=== PATIENT | female | born 1955 | race Caucasian/White ===

== ENCOUNTER 2017-02-27 10:10 | Emergency (ER) | payer OTHER ==
[2017-02-27] MEDS ORDERED: Adenosine 6 MG/2 ML SDV ONE (10:20)
[2017-02-27] MEDS ORDERED: Adenosine 6 MG/2 ML SDV IVPUSH ONE (10:41)
[2017-02-27] MEDS ORDERED: Sodium Chloride 0.9% 10 ML Syringe FLUSH PRN (10:42)
[2017-02-27] MEDS ORDERED: Sodium Chloride 0.9% 1,000 ML IV SCH (10:45)
--- NOTE | 2017-02-27 10:47 | EDM.PDOC ---
ED HPI GENERAL MEDICAL PROBLEM - General Chief Complaint: Chest Pain Stated Complaint: HEART PRESSURE Time Seen by Provider: 02/27/17 10:40 Source of Information: Reports: Patient, Family, RN Notes Reviewed History Limitations: Reports: No Limitations - History of Present Illness INITIAL COMMENTS - FREE TEXT/NARRATIVE: 61-year-old female presents emergency department day complaint of palpitations, she states it started about one hour prior while she was driving down the road never experienced this before she has no heart history past medical history of hypertension and dyslipidemia, she does feel short of breath is diaphoretic no nausea vomiting Chest Pain Score (Numeric/FACES): 3 - Related Data Allergies Allergy/AdvReac Type Severity Reaction Status Date / Time Sulfa (Sulfonamide Allergy Hives Verified 02/27/17 10:29 Antibiotics) Home Meds: Home Meds Lisinopril [Prinivil] 1 tab PO DAILY 02/27/17 [History] Simvastatin [Zocor] 1 tab PO DAILY 02/27/17 [History] Past Medical History Cardiovascular History: Reports: Blood Clots/VTE/DVT, High Cholesterol, Hypertension - Past Surgical History Female Surgical History: Reports: Hysterectomy Social & Family History - Tobacco Use Smoking Status *Q: Never Smoker - Alcohol Use Days Per Week of Alcohol Use: 5 Number of Drinks Per Day: 2 Total Drinks Per Week: 10 - Recreational Drug Use Recreational Drug Use: No ED ROS GENERAL - Review of Systems Review Of Systems: See Below Constitutional: Reports: Diaphoresis HEENT: Reports: No Symptoms Respiratory: Reports: Shortness of Breath Cardiovascular: Reports: Chest Pain, Dyspnea on Exertion, Palpitations GI/Abdominal: Reports: No Symptoms : Reports: No Symptoms ED EXAM, GENERAL - Physical Exam Exam: See Below Exam Limited By: No Limitations General Appearance: Alert, Moderate Distress Respiratory/Chest: Lungs Clear, Normal Breath Sounds, No Accessory Muscle Use Cardiovascular: Tachycardia GI/Abdominal: Soft, Non-Tender Course - Vital Signs Last Recorded V/S: Last Vital Signs Temp 95.7 F 02/27/17 10:14 Pulse 82 02/27/17 12:50 Resp 20 02/27/17 11:41 BP 117/55 L 02/27/17 12:50 Pulse Ox 98 02/27/17 11:41 - Orders/Labs/Meds Orders: Active Orders 24 hr Category Date Time Status Cardiac Monitoring [RC] .As Directed Care 02/27/17 10:42 Active EKG Documentation Completion [RC] ASDIRECTED Care 02/27/17 10:43 Active EKG Documentation Completion [RC] ASDIRECTED Care 02/27/17 10:45 Active Peripheral IV Care [RC] . DIRECTED Care 02/27/17 10:42 Active Sodium Chloride 0.9% [Normal Saline] 1,000 ml Med 02/27/17 10:45 Active IV ASDIRECTED Sodium Chloride 0.9% [Saline Flush] Med 02/27/17 10:42 Active 10 ml FLUSH ASDIRECTED PRN Peripheral IV Insertion Adult [OM.PC] Stat Oth 02/27/17 10:42 Ordered EKG 12 Lead [EK] Stat Ther 02/27/17 10:43 Ordered EKG 12 Lead [EK] Stat Ther 02/27/17 10:44 Ordered Medication Orders Sodium Chloride (Normal Saline) 1,000 mls @ 999 mls/hr IV ASDIRECTED ALEC Last Admin: 02/27/17 10:25 Dose: 999 mls/hr Sodium Chloride (Saline Flush) 10 ml FLUSH ASDIRECTED PRN PRN Reason: Keep Vein Open Last Admin: 02/27/17 10:20 Dose: 10 ml Labs: Laboratory Tests 02/27/17 02/27/17 02/27/17 Range/Units 11:10 11:10 11:10 WBC 10.3 (4.5-11.0) K/uL RBC 4.55 (3.30-5.50) M/uL Hgb 14.8 (12.0-15.0) g/dL Hct 44.6 (36.0-48.0) % MCV 98 (80-98) fL MCH 33 H (27-31) pg MCHC 33 (32-36) % Plt Count 111 L (150-400) K/uL Neut % (Auto) 76 H (36-66) % Lymph % (Auto) 11 L (24-44) % [place] % (Auto) 7 H (2-6) % Eos % (Auto) 5 H (2-4) % Baso % (Auto) 0 (0-1) % Sodium 143 (140-148) mmol/L Potassium 4.7 (3.6-5.2) mmol/L Chloride 108 (100-108) mmol/L Carbon Dioxide 25 (21-32) mmol/L Anion Gap 9.7 (5.0-14.0) mmol/L BUN 17 (7-18) mg/dL Creatinine 1.2 H D (0.6-1.0) mg/dL Est Cr Clr Drug Dosing 44.30 mL/min Estimated GFR (MDRD) 46 L (>60) Glucose 122 H (74-106) mg/dL Calcium 8.9 (8.5-10.1) mg/dL Magnesium 1.8 (1.8-2.4) mg/dL Total Bilirubin 0.5 (0.2-1.0) mg/dL AST 45 H (15-37) U/L ALT 51 (12-78) U/L Alkaline Phosphatase 92 (46-116) U/L CK-MB (CK-2) 5.2 H* (0-3.6) mg/mL Troponin I 0.020 (0.000-0.056) ng/mL Total Protein 7.2 (6.4-8.2) g/dL Albumin 3.3 L (3.4-5.0) g/dL Globulin 3.9 H (2.3-3.5) g/dL Albumin/Globulin Ratio 0.9 L (1.2-2.2) TSH, Ultra Sensitive 1.472 (0.358-3.740) uIU/mL Urine Color Urine Appearance Urine pH (4.5-8.0) Ur Specific [place] (1.008-1.030) Urine Protein (NEGATIVE) mg/dL Urine Glucose (UA) (NEGATIVE) mg/dL Urine Ketones (NEGATIVE) mg/dL Urine Occult Blood (NEGATIVE) Urine Nitrite (NEGATIVE) Urine Bilirubin (NEGATIVE) Urine Urobilinogen (NORMAL) mg/dL Ur Leukocyte Esterase (NEGATIVE) Urine RBC (0-5) Urine WBC (0-5) Ur Epithelial Cells Amorphous Sediment Urine Bacteria Urine Mucus Urine Other Urine Opiates Screen (NEGATIVE) Ur Oxycodone Screen (NEGATIVE) Urine Methadone Screen (NEGATIVE) Ur Propoxyphene Screen (NEGATIVE) Ur Barbiturates Screen (NEGATIVE) Ur Tricyclics Screen (NEGATIVE) Ur Phencyclidine Scrn (NEGATIVE) Ur Amphetamine Screen (NEGATIVE) U Methamphetamines Scrn (NEGATIVE) Urine MDMA Screen (NEGATIVE) U Benzodiazepines Scrn (NEGATIVE) U Cocaine Metab Screen (NEGATIVE) U Marijuana (THC) Screen (NEGATIVE) 02/27/17 02/27/17 Range/Units 11:34 11:34 WBC (4.5-11.0) K/uL RBC (3.30-5.50) M/uL Hgb (12.0-15.0) g/dL Hct (36.0-48.0) % MCV (80-98) fL MCH (27-31) pg MCHC (32-36) % Plt Count (150-400) K/uL Neut % (Auto) (36-66) % Lymph % (Auto) (24-44) % [place] % (Auto) (2-6) % Eos % (Auto) (2-4) % Baso % (Auto) (0-1) % Sodium (140-148) mmol/L Potassium (3.6-5.2) mmol/L Chloride (100-108) mmol/L Carbon Dioxide (21-32) mmol/L Anion Gap (5.0-14.0) mmol/L BUN (7-18) mg/dL Creatinine (0.6-1.0) mg/dL Est Cr Clr Drug Dosing mL/min Estimated GFR (MDRD) (>60) Glucose (74-106) mg/dL Calcium (8.5-10.1) mg/dL Magnesium (1.8-2.4) mg/dL Total Bilirubin (0.2-1.0) mg/dL AST (15-37) U/L ALT (12-78) U/L Alkaline Phosphatase (46-116) U/L CK-MB (CK-2) (0-3.6) mg/mL Troponin I (0.000-0.056) ng/mL Total Protein (6.4-8.2) g/dL Albumin (3.4-5.0) g/dL Globulin (2.3-3.5) g/dL Albumin/Globulin Ratio (1.2-2.2) TSH, Ultra Sensitive (0.358-3.740) uIU/mL Urine Color Yellow Urine Appearance Cloudy Urine pH 6.5 (4.5-8.0) Ur Specific [place] 1.010 (1.008-1.030) Urine Protein Negative (NEGATIVE) mg/dL Urine Glucose (UA) Normal (NEGATIVE) mg/dL Urine Ketones 15 H (NEGATIVE) mg/dL Urine Occult Blood Moderate (NEGATIVE) Urine Nitrite Negative (NEGATIVE) Urine Bilirubin Negative (NEGATIVE) Urine Urobilinogen Normal (NORMAL) mg/dL Ur Leukocyte Esterase Negative (NEGATIVE) Urine RBC 5-10 H (0-5) Urine WBC 5-10 H (0-5) Ur Epithelial Cells Many Amorphous Sediment Many Urine Bacteria Few Urine Mucus Few Urine Other See note Urine Opiates Screen Negative (NEGATIVE) Ur Oxycodone Screen Negative (NEGATIVE) Urine Methadone Screen Negative (NEGATIVE) Ur Propoxyphene Screen Negative (NEGATIVE) Ur Barbiturates Screen Negative (NEGATIVE) Ur Tricyclics Screen Negative (NEGATIVE) Ur Phencyclidine Scrn Negative (NEGATIVE) Ur Amphetamine Screen Negative (NEGATIVE) U Methamphetamines Scrn Negative (NEGATIVE) Urine MDMA Screen Negative (NEGATIVE) U Benzodiazepines Scrn Negative (NEGATIVE) U Cocaine Metab Screen Negative (NEGATIVE) U Marijuana (THC) Screen Negative (NEGATIVE) Meds: Medications Generic Name Dose Route Start Last Admin Trade Name Freq PRN Reason Stop Dose Admin Sodium Chloride 1,000 mls @ 999 mls/hr 02/27/17 10:45 02/27/17 10:25 Normal Saline IV 999 mls/hr ASDIRECTED ALEC Administration Sodium Chloride 10 ml 02/27/17 10:42 02/27/17 10:20 Saline Flush FLUSH 10 ml ASDIRECTED PRN Administration Keep Vein Open Discontinued Medications Generic Name Dose Route Start Last Admin Trade Name Freq PRN Reason Stop Dose Admin Adenosine Confirm 02/27/17 10:20 02/27/17 10:46 Adenocard Administered 02/27/17 10:21 Not Given Dose 18 mg .ROUTE .STK-MED ONE Adenosine 6 mg 02/27/17 10:41 02/27/17 10:28 Adenocard IVPUSH 02/27/17 10:42 6 mg NOW ONE Administration Metoprolol Tartrate 25 mg 02/27/17 12:42 02/27/17 12:50 Lopressor PO 02/27/17 12:43 25 mg ONETIME ONE Administration Departure - Departure Time of Disposition: 15:12 Disposition: Home, Self-Care 01 Condition: Good Clinical Impression: SVT (supraventricular tachycardia) Instructions: Paroxysmal Supraventricular Tachycardia, [id number] Referrals: PCP,None [Primary Care Provider] - Forms: ED Department Discharge Additional Instructions: [place] start Metoprolol Tartrate 25mg. 1 tablet twice a day orally. Return to ER if symptoms return or worsen. - My Orders Last 24 Hours: My Active Orders 02/27/17 10:42 Cardiac Monitoring [RC] .As Directed Peripheral IV Care [RC] . DIRECTED Sodium Chloride 0.9% [Saline Flush] 10 ml FLUSH ASDIRECTED PRN Peripheral IV Insertion Adult [OM.PC] Stat 02/27/17 10:43 EKG Documentation Completion [RC] ASDIRECTED EKG 12 Lead [EK] Stat 02/27/17 10:44 EKG 12 Lead [EK] Stat 02/27/17 10:45 EKG Documentation Completion [RC] ASDIRECTED Sodium Chloride 0.9% [Normal Saline] 1,000 ml IV ASDIRECTED - Assessment/Plan Last 24 Hours: My Active Orders 02/27/17 10:42 Cardiac Monitoring [RC] .As Directed Peripheral IV Care [RC] . DIRECTED Sodium Chloride 0.9% [Saline Flush] 10 ml FLUSH ASDIRECTED PRN Peripheral IV Insertion Adult [OM.PC] Stat 02/27/17 10:43 EKG Documentation Completion [RC] ASDIRECTED EKG 12 Lead [EK] Stat 02/27/17 10:44 EKG 12 Lead [EK] Stat 02/27/17 10:45 EKG Documentation Completion [RC] ASDIRECTED Sodium Chloride 0.9% [Normal Saline] 1,000 ml IV ASDIRECTED Plan: Assessment Acuity = acute Site and laterality = supraventricular tachycardia Etiology = unclear etiology Manifestations = chest pressure now resolved] Location of injury = Home Lab values = cranial elevated 1.2 consistent with chronic renal failure stage G IIIB CK-MB elevated to 5.2 probably related to SVT albumin low at 3.3 consistent hypoalbuminemia urinalysis reveals 5-10 rbc's consistent hematuria and 5-10 wbc's consists of pyuria initial EKG demonstrates supraventricular tachycardia, after treatment and conversion repeat EKG demonstrates a sinus tachycardia at 109, chest x-ray shows no acute process Plan Called discussed case with her primary care Dr. Johnson he agreed to come and evaluate her in the emergency department for further treatment Patient was in agreement with the plan all questions were answered, they were instructed to return to the emergency department or call for worsening symptoms. This note was dictated using [employer] voice recognition software please call with any questions.
--- NOTE | 2017-02-27 11:35 | CR ---
Chest 1V Frontal FINDINGS: The heart and vascular structures are normal in appearance. No infiltrates or effusions are demonstrated. The skeletal structures are unremarkable. IMPRESSION: Negative exam.
[2017-02-27] MEDS ORDERED: Metoprolol Tartrate 25 MG Tab PO ONE (12:42)
[2017-02-27 15:16] VITALS: BP 97/53
--- NOTE | 2017-02-28 16:43 | PCM.HP ---
H&P History of Present Illness - General Date of Service: 02/27/17 Source of Information: Patient, EMS Notes Reviewed, Family History Limitations: Reports: No Limitations - History of Present Illness Initial Comments - Free Text/Narative: She was driving to work and suddenly had shortness of breath and felt a rapid heart rate. She was very weak and felt like fainting. She had been on her way to work and turned around and came to the ER. I will called for a possible admission. She has had a history of a DVT in the past and was on coumadin for a number o months and was taken off after 9 months of treatment. She had has infrequent episodes of palpations in the past. When she came to the ER her heart rate was over 200 BPM and feeling very weak. She was treated and the heart rate came down to close to 100 BPM. At the time of my evaluation she was sitting in bed without complaints. Onset of Symptoms: Reports: Today Duration of Symptoms: Reports: Hour(s): Location: Reports: Chest Quality: Reports: Sharp Associated Symptoms: Reports: Diaphoresis, Shortness of Breath, Weakness Chest Pain Score (Numeric/FACES): 3 - Related Data Allergies/Adverse Reactions: Allergies Allergy/AdvReac Type Severity Reaction Status Date / Time Sulfa (Sulfonamide Allergy Hives Verified 02/27/17 10:29 Antibiotics) Home Medications: Home Meds Lisinopril [Prinivil] 1 tab PO DAILY 02/27/17 [History] Simvastatin [Zocor] 1 tab PO DAILY 02/27/17 [History] Past Medical History Cardiovascular History: Reports: Blood Clots/VTE/DVT, High Cholesterol, Hypertension - Past Surgical History Female Surgical History: Reports: Hysterectomy Social & Family History - Tobacco Use Smoking Status *Q: Never Smoker - Alcohol Use Days Per Week of Alcohol Use: 5 Number of Drinks Per Day: 2 Total Drinks Per Week: 10 - Recreational Drug Use Recreational Drug Use: No H&P Review of Systems - Review of Systems: Review Of Systems: See Below General: Reports: Weakness HEENT: Reports: Headaches Pulmonary: Reports: Shortness of Breath Cardiovascular: Reports: Palpitations, Dyspnea on Exertion Gastrointestinal: Reports: No Symptoms Genitourinary: Reports: No Symptoms Musculoskeletal: Reports: No Symptoms Skin: Reports: No Symptoms Psychiatric: Reports: Anxiety Neurological: Reports: Weakness Exam - Exam Exam: See Below - Vital Signs Vital Signs: Last Vital Signs Temp 95.7 F 02/27/17 10:14 Pulse 82 02/27/17 14:50 Resp 16 02/27/17 14:50 BP 97/53 L 02/27/17 14:50 Pulse Ox 98 02/27/17 12:41 Weight: 179 lb - Exam General: Alert, Mild Distress HEENT: PERRLA, Hearing Intact, Mucosa Moist & [place], Nares Patent, Normal Nasal Septum, Posterior Pharynx Clear, Conjunctiva Clear, EOMI, EACs Clear, TMs Clear Neck: Supple, Trachea Midline, 2 Lungs: Clear to Auscultation, Normal Respiratory Effort Cardiovascular: Regular Rate GI/Abdominal Exam: Normal Bowel Sounds, Soft, Non-Tender, No Organomegaly, No Distention, No Abnormal Bruit, No Mass, Pelvis Stable Extremities: Normal Inspection, Normal Range of Motion, Non-Tender, No Pedal Edema, Normal Capillary Refill - Patient Data Result Diagrams: 02/27/17 11:10 02/27/17 11:10 *Q Meaningful Use (ADM) - VTE *Q VTE Criteria *Q: - Stroke *Q Stroke Criteria *Q: - AMI *Q AMI Criteria *Q: Problem List Initiated/Reviewed/Updated: Yes Orders Last 24hrs: Assessment/plan: #1. Supraventricular tachycardia. I discussed the condition and felt she could go home as the blood work and EKG did not show any acute changes. I gavae her Metoprolol and observed her for over one hour and she appeared to be stable having no cardiac rhythm problems. I discharged her home with the understanding she should return if she develops a rapid heart rate or does not feel good. She understands. Myles yosvany continue with Metoprolol tartrate 25mg twice daily.
== END 2017-02-27 15:10 | disposition home or self-care (01) ==
LOC: JP.ED 10:10
DX: I47.1 Supraventricular tachycardia (principal); I10 Essential (primary) hypertension; E78.00 Pure hypercholesterolemia, unspecified; Z79.899 Other long term (current) drug therapy; Z88.2 Allergy status to sulfonamides; Z90.710 Acquired absence of both cervix and uterus
CPT/HCPCS: 36415; 71010; 80053; 80305; 81001; 82553; 83735; 84443; 84484; 85025; 93005; 96361; 96374; 99285; A9270; J0153; J7040; J7050

== ENCOUNTER 2017-07-28 13:31 | Inpatient (IN) | payer OTHER ==
[2017-07-28] MEDS ORDERED: Adenosine 6 MG/2 ML SDV ONE (13:38)
[2017-07-28] MEDS ORDERED: Adenosine 6 MG/2 ML SDV IVPUSH ONE ×3 (13:47→15:15)
[2017-07-28] MEDS ORDERED: Sodium Chloride 0.9% 1,000 ML IV SCH ×3 (14:00→17:30)
[2017-07-28] MEDS ORDERED: Ondansetron 4 MG/2 ML SDV IVPUSH ONE (14:01)
--- NOTE | 2017-07-28 14:37 | CR ---
Heart size within normal limits. Pulmonary vasculature within normal limits. No focal consolidation.
[2017-07-28] MEDS ORDERED: Ketorolac 30 MG/ML SDV IVPUSH ONE (15:03)
--- NOTE | 2017-07-28 15:04 | EDM.PDOC ---
ED HPI GENERAL MEDICAL PROBLEM - General Chief Complaint: Cardiovascular Problem Stated Complaint: RAPID HEARTBEAT Time Seen by Provider: 07/28/17 13:50 Source of Information: Reports: Patient, Family History Limitations: Reports: No Limitations - History of Present Illness INITIAL COMMENTS - FREE TEXT/NARRATIVE: pt arrived with a rapid heart rate over 200. She had no chest pain. She had been up all nite with nausea , vomiting and diarrhea. She had no marked sob but did have a high resp rate. Onset: Today, Sudden, Other (Pt had been up all nite vomiting and having diarrhea. ) Duration: Hour(s): Location: Reports: Chest, Abdomen Associated Symptoms: Reports: Fever/Chills, Nausea/Vomiting - Related Data Allergies Allergy/AdvReac Type Severity Reaction Status Date / Time Sulfa (Sulfonamide Allergy Hives Verified 07/28/17 14:01 Antibiotics) Home Meds: Home Meds Diltiazem HCl [Cartia Xt] 1 tab PO DAILY 07/28/17 [History] Ondansetron 1 tab PO ASDIRECTED 07/28/17 [History] Oseltamivir Phosphate 1 tab PO ASDIRECTED 07/28/17 [History] Past Medical History Cardiovascular History: Reports: Blood Clots/VTE/DVT, High Cholesterol, Hypertension, Other (See Below) Other Cardiovascular History: SVT - Past Surgical History Female Surgical History: Reports: Hysterectomy Social & Family History - Tobacco Use Smoking Status *Q: Never Smoker - Alcohol Use Days Per Week of Alcohol Use: 3 Number of Drinks Per Day: 1 Total Drinks Per Week: 3 - Recreational Drug Use Recreational Drug Use: No ED ROS GENERAL - Review of Systems Review Of Systems: See Below Constitutional: Reports: Chills HEENT: Reports: No Symptoms Respiratory: Reports: No Symptoms Cardiovascular: Reports: Lightheadedness, Palpitations, Other ( heart rate of 216) Endocrine: Reports: No Symptoms GI/Abdominal: Reports: No Symptoms, Diarrhea, Nausea, Vomiting : Reports: No Symptoms Musculoskeletal: Reports: No Symptoms Skin: Reports: No Symptoms Neurological: Reports: Dizziness, Headache Psychiatric: Reports: Anxiety ED EXAM, GENERAL - Physical Exam Exam: See Below Free Text/Narrative:: Pt arrived feeling dizzy. Her heart rate ws 216 in a svt. She was mildly sob. She had been up all nite vomiting and having diarrhea. Exam Limited By: No Limitations General Appearance: Alert, Anxious, Mild Distress, Other (pupils are equal and reactive. ) Ears: Normal TMs Ear Exam: Bilateral Ear: Auricle Normal, Canal Normal, TM normal Nose: Normal Inspection Throat/Mouth: Normal Inspection Head: Atraumatic Neck: Normal Inspection Respiratory/Chest: No Respiratory Distress Cardiovascular: Regular Rate, Rhythm, Tachycardia, Other (heart rate at 216) GI/Abdominal: Soft, Non-Tender (Female) Exam: Deferred Rectal (Female) Exam: Deferred Extremities: Normal Inspection Neurological: Alert, Oriented, Normal Cognition Psychiatric: Anxious Course - Vital Signs Last Recorded V/S: Last Vital Signs Temp 36.7 C 07/28/17 13:58 Pulse 103 H 07/28/17 15:24 Resp 32 H 07/28/17 14:11 BP 141/78 H 07/28/17 15:24 Pulse Ox 100 07/28/17 14:11 - Orders/Labs/Meds Orders: Active Orders 24 hr Category Date Time Status DD [D-DIMER QUANTITATIVE] [COAG] Stat Lab 07/28/17 15:31 Ordered INFLUENZA A+B AG SCREEN [RM] Stat Lab 07/28/17 15:28 Uncollected LORazepam [Ativan] Med 07/28/17 15:34 Once 0.5 mg IVPUSH ONETIME ONE Magnesium Sulfate/Water [Magnesium Sulfate 2 GM in Med 07/28/17 15:29 Ordered Water 50 ML] 2 gm Premix Bag 1 bag IV ONETIME Sodium Chloride 0.9% [Normal Saline] 1,000 ml Med 07/28/17 14:00 Active IV ASDIRECTED Sodium Chloride 0.9% [Normal Saline] 1,000 ml Med 07/28/17 15:00 Active IV ASDIRECTED Medication Orders Sodium Chloride (Normal Saline) 1,000 mls @ 999 mls/hr IV ASDIRECTED ALEC Last Admin: 07/28/17 13:45 Dose: 999 mls/hr Sodium Chloride (Normal Saline) 1,000 mls @ 999 mls/hr IV ASDIRECTED ALEC Last Admin: 07/28/17 14:49 Dose: 999 mls/hr Magnesium Sulfate 2 gm/ Premix 50 mls @ 12.5 mls/hr IV ONETIME ONE Stop: 07/28/17 19:28 Labs: Laboratory Tests 07/28/17 07/28/17 07/28/17 Range/Units 13:46 13:46 13:46 WBC 17.5 H (4.5-11.0) K/uL RBC 5.12 (3.30-5.50) M/uL Hgb 16.3 H (12.0-15.0) g/dL Hct 49.5 H (36.0-48.0) % MCV 97 (80-98) fL MCH 32 H (27-31) pg MCHC 33 (32-36) % Plt Count 308 (150-400) K/uL Neut % (Auto) 94 H (36-66) % Lymph % (Auto) 4 L (24-44) % [place] % (Auto) 2 (2-6) % Eos % (Auto) 0 L (2-4) % Baso % (Auto) 0 (0-1) % Sodium 143 (140-148) mmol/L Potassium 3.6 (3.6-5.2) mmol/L Chloride 108 (100-108) mmol/L Carbon Dioxide 19 L (21-32) mmol/L Anion Gap 19.6 H (5.0-14.0) mmol/L BUN 19 H (7-18) mg/dL Creatinine 1.2 H (0.6-1.0) mg/dL Est Cr Clr Drug Dosing 44.30 mL/min Estimated GFR (MDRD) 46 L (>60) Glucose 176 H (74-106) mg/dL Calcium 9.1 (8.5-10.1) mg/dL Magnesium 1.7 L (1.8-2.4) mg/dL Total Bilirubin 0.5 (0.2-1.0) mg/dL AST 23 (15-37) U/L ALT 33 (12-78) U/L Alkaline Phosphatase 102 (46-116) U/L Troponin I < 0.017 (0.000-0.056) ng/mL NT-Pro-B Natriuret Pep (5-125) pg/mL Total Protein 7.3 (6.4-8.2) g/dL Albumin 3.7 (3.4-5.0) g/dL Globulin 3.6 H (2.3-3.5) g/dL Albumin/Globulin Ratio 1.0 L (1.2-2.2) TSH, Ultra Sensitive (0.358-3.740) uIU/mL Urine Color Urine Appearance Urine pH (4.5-8.0) Ur Specific [place] (1.008-1.030) Urine Protein (NEGATIVE) mg/dL Urine Glucose (UA) (NEGATIVE) mg/dL Urine Ketones (NEGATIVE) mg/dL Urine Occult Blood (NEGATIVE) Urine Nitrite (NEGATIVE) Urine Bilirubin (NEGATIVE) Urine Urobilinogen (NORMAL) mg/dL Ur Leukocyte Esterase (NEGATIVE) Urine RBC (0-5) Urine WBC (0-5) Ur Epithelial Cells Amorphous Sediment Urine Bacteria Urine Mucus 07/28/17 07/28/17 07/28/17 Range/Units 13:46 14:49 15:16 WBC (4.5-11.0) K/uL RBC (3.30-5.50) M/uL Hgb (12.0-15.0) g/dL Hct (36.0-48.0) % MCV (80-98) fL MCH (27-31) pg MCHC (32-36) % Plt Count (150-400) K/uL Neut % (Auto) (36-66) % Lymph % (Auto) (24-44) % [place] % (Auto) (2-6) % Eos % (Auto) (2-4) % Baso % (Auto) (0-1) % Sodium (140-148) mmol/L Potassium (3.6-5.2) mmol/L Chloride (100-108) mmol/L Carbon Dioxide (21-32) mmol/L Anion Gap (5.0-14.0) mmol/L BUN (7-18) mg/dL Creatinine (0.6-1.0) mg/dL Est Cr Clr Drug Dosing mL/min Estimated GFR (MDRD) (>60) Glucose (74-106) mg/dL Calcium (8.5-10.1) mg/dL Magnesium (1.8-2.4) mg/dL Total Bilirubin (0.2-1.0) mg/dL AST (15-37) U/L ALT (12-78) U/L Alkaline Phosphatase (46-116) U/L Troponin I (0.000-0.056) ng/mL NT-Pro-B Natriuret Pep 118 (5-125) pg/mL Total Protein (6.4-8.2) g/dL Albumin (3.4-5.0) g/dL Globulin (2.3-3.5) g/dL Albumin/Globulin Ratio (1.2-2.2) TSH, Ultra Sensitive 1.203 (0.358-3.740) uIU/mL Urine Color Yellow Urine Appearance Clear Urine pH 7.0 (4.5-8.0) Ur Specific [place] 1.010 (1.008-1.030) Urine Protein Negative (NEGATIVE) mg/dL Urine Glucose (UA) Normal (NEGATIVE) mg/dL Urine Ketones 15 H (NEGATIVE) mg/dL Urine Occult Blood Negative (NEGATIVE) Urine Nitrite Negative (NEGATIVE) Urine Bilirubin Small (NEGATIVE) Urine Urobilinogen Normal (NORMAL) mg/dL Ur Leukocyte Esterase Negative (NEGATIVE) Urine RBC 0-5 (0-5) Urine WBC 0-5 (0-5) Ur Epithelial Cells Moderate Amorphous Sediment Few Urine Bacteria Few Urine Mucus Few Meds: Medications Generic Name Dose Route Start Last Admin Trade Name Freq PRN Reason Stop Dose Admin Sodium Chloride 1,000 mls @ 999 mls/hr 07/28/17 14:00 07/28/17 13:45 Normal Saline IV 999 mls/hr ASDIRECTED ALEC Administration Sodium Chloride 1,000 mls @ 999 mls/hr 07/28/17 15:00 07/28/17 14:49 Normal Saline IV 999 mls/hr ASDIRECTED ALEC Administration Magnesium Sulfate 2 gm/ Premix 50 mls @ 12.5 mls/hr 07/28/17 15:29 IV 07/28/17 19:28 ONETIME ONE Discontinued Medications Generic Name Dose Route Start Last Admin Trade Name Freq PRN Reason Stop Dose Admin Adenosine Confirm 07/28/17 13:38 07/28/17 14:11 Adenocard Administered 07/28/17 13:39 Not Given Dose 18 mg .ROUTE .STK-MED ONE Adenosine 6 mg 07/28/17 13:47 07/28/17 13:47 Adenocard IVPUSH 07/28/17 13:48 6 mg NOW ONE Administration Adenosine 12 mg 07/28/17 13:49 07/28/17 13:49 Adenocard IVPUSH 07/28/17 13:50 12 mg NOW ONE Administration Adenosine 12 mg 07/28/17 15:15 07/28/17 15:10 Adenocard IVPUSH 07/28/17 15:16 12 mg ONETIME ONE Administration Ketorolac Tromethamine 30 mg 07/28/17 15:03 07/28/17 15:24 Toradol IVPUSH 07/28/17 15:04 30 mg ONETIME ONE Administration Metoprolol Tartrate 50 mg 07/28/17 15:15 07/28/17 15:24 Lopressor PO 07/28/17 15:16 50 mg ONETIME ONE Administration Ondansetron HCl 4 mg 07/28/17 14:01 Zofran IVPUSH 07/28/17 14:02 ONETIME ONE - Re-Assessments/Exams Free Text/Narrative Re-Assessment/Exam: 07/28/17 15:54 pt arrived with a heart rate of 216. She converted and she was given 2 liters of fluid. She seemed stable and she got up omn a comode and she once again went into the svt. She was converted with another 12 mg of adenogard. She was given lopressor 50mg po. She then had a bm and she went back into the svt. She was given another 12 mg of adenosine and she converted once again. A cardiozem drip was hung to try to hold her rhythm better. Departure - Departure Time of Disposition: 16:06 Disposition: Admitted As Inpatient 66 Condition: Fair Clinical Impression: SVT (supraventricular tachycardia), Dehydration, Hypomagnesemia, Flu syndrome Referrals: Matteo Johnson Sr, MD [Primary Care Provider] - Forms: ED Department Discharge Care Plan Goals: admit to Dr Johnson. - My Orders Last 24 Hours: My Active Orders 07/28/17 14:00 Sodium Chloride 0.9% [Normal Saline] 1,000 ml IV ASDIRECTED 07/28/17 15:00 Sodium Chloride 0.9% [Normal Saline] 1,000 ml IV ASDIRECTED 07/28/17 15:28 INFLUENZA A+B AG SCREEN [RM] Stat 07/28/17 15:29 Magnesium Sulfate/Water [Magnesium Sulfate 2 GM in Water 50 ML] 2 gm Premix Bag 1 bag IV ONETIME 07/28/17 15:31 DD [D-DIMER QUANTITATIVE] [COAG] Stat 07/28/17 15:34 LORazepam [Ativan] 0.5 mg IVPUSH ONETIME ONE - Assessment/Plan Last 24 Hours: My Active Orders 07/28/17 14:00 Sodium Chloride 0.9% [Normal Saline] 1,000 ml IV ASDIRECTED 07/28/17 15:00 Sodium Chloride 0.9% [Normal Saline] 1,000 ml IV ASDIRECTED 07/28/17 15:28 INFLUENZA A+B AG SCREEN [RM] Stat 07/28/17 15:29 Magnesium Sulfate/Water [Magnesium Sulfate 2 GM in Water 50 ML] 2 gm Premix Bag 1 bag IV ONETIME 07/28/17 15:31 DD [D-DIMER QUANTITATIVE] [COAG] Stat 07/28/17 15:34 LORazepam [Ativan] 0.5 mg IVPUSH ONETIME ONE
[2017-07-28] MEDS ORDERED: Metoprolol Tartrate 50 MG Tab PO ONE (15:15)
[2017-07-28] MEDS ORDERED: Magnesium Sulfate/Water 2 GM in Premix Bag 1 BAG IV ONE (15:29)
[2017-07-28] MEDS ORDERED: LORazepam 2 MG/ML MDV IVPUSH ONE (15:34)
[2017-07-28] MEDS ORDERED: Diltiazem 25 MG/5 ML SDV IVPUSH ONE (15:59)
[2017-07-28] MEDS ORDERED: Diltiazem 100 MG in Sodium Chloride 0.9% 100 ML IV SCH (16:00)
[2017-07-28] MEDS ORDERED: Adenosine 6 MG/2 ML SDV IV ONE (16:00)
[2017-07-28] MEDS: Diltiazem 100 MG in Sodium Chloride 0.9% 100 ML IV SCH ×2 (16:29→16:31)
--- NOTE | 2017-07-28 17:54 | PCM.HP ---
H&P History of Present Illness - General Date of Service: 07/28/17 Source of Information: Patient, EMS Notes Reviewed - History of Present Illness Initial Comments - Free Text/Narative: She started to have Muscle aching and N and V yesterday. She has a history of SVT episodes in the past and taking Diltiazem for rate and bp control. She said recently her heart has been rapid and she can feel it race. She feels like the Medicine is not controlling her rate like it was in the past. She has had no angina type pains in her chest. She had been on Zocor but was stopped because of muscle pains. Today her heart started to race and came into the ER and heart was over 200 beats/min. She was given adenosine 5 times to convert her heart. Duration of Symptoms: Reports: Hour(s): Severity: Severe - Related Data Allergies/Adverse Reactions: Allergies Allergy/AdvReac Type Severity Reaction Status Date / Time Sulfa (Sulfonamide Allergy Hives Verified 07/28/17 14:01 Antibiotics) Home Medications: Home Meds Diltiazem HCl [Cartia Xt] 1 tab PO DAILY 07/28/17 [History] Ondansetron 1 tab PO ASDIRECTED 07/28/17 [History] Oseltamivir Phosphate 1 tab PO ASDIRECTED 07/28/17 [History] Past Medical History Cardiovascular History: Reports: Blood Clots/VTE/DVT, High Cholesterol, Hypertension, Other (See Below) Other Cardiovascular History: SVT - Past Surgical History Female Surgical History: Reports: Hysterectomy Social & Family History - Tobacco Use Smoking Status *Q: Never Smoker - Alcohol Use Days Per Week of Alcohol Use: 3 Number of Drinks Per Day: 1 Total Drinks Per Week: 3 - Recreational Drug Use Recreational Drug Use: No H&P Review of Systems - Review of Systems: Review Of Systems: See Below General: Reports: Fever, Chills, Weakness HEENT: Reports: No Symptoms Pulmonary: Reports: No Symptoms Cardiovascular: Reports: Palpitations, Dyspnea on Exertion Gastrointestinal: Reports: Nausea, Vomiting Genitourinary: Reports: No Symptoms Musculoskeletal: Reports: No Symptoms Skin: Reports: No Symptoms Psychiatric: Reports: No Symptoms Neurological: Reports: No Symptoms Exam - Exam Exam: See Below - Vital Signs Vital Signs: Last Vital Signs Temp 98.1 F 07/28/17 13:58 Pulse 146 H 07/28/17 16:34 Resp 32 H 07/28/17 14:11 BP 118/76 07/28/17 16:34 Pulse Ox 97 07/28/17 16:34 Weight: 200 lb 8 oz - Exam General: Alert, Oriented, 4 HEENT: PERRLA, Hearing Intact, Mucosa Moist & [place], Nares Patent, Normal Nasal Septum, Posterior Pharynx Clear, Conjunctiva Clear, EOMI, EACs Clear, TMs Clear Neck: Supple, Trachea Midline, 2 Lungs: Clear to Auscultation, Normal Respiratory Effort Cardiovascular: Regular Rate, Regular Rhythm GI/Abdominal Exam: Normal Bowel Sounds, Soft, Non-Tender, No Organomegaly, No Distention, No Abnormal Bruit, No Mass, Pelvis Stable Back Exam: Normal Inspection, Full Range of Motion, NT Extremities: Normal Inspection, Normal Range of Motion, Non-Tender, No Pedal Edema, Normal Capillary Refill Peripheral Pulses: 1+: Radial (L), Radial (R) Skin: Warm, Dry, Intact Neurological: Cranial Nerves Intact, Reflexes Equal Bilateral Neuro Extensive - Mental Status: Alert, Oriented x3, Normal Mood/Affect, Normal Cognition DTR: 1+: Bicep (L), Bicep (R) - Patient Data Result Diagrams: 07/28/17 13:46 07/28/17 13:46 Nate Results Last 24 hrs: Microbiology 07/28/17 15:57 Influenza Type A Antigen Screen - Final Nasopharyngeal Swab - Nare, Unspecified NEGATIVE INFLUENZA A VIRUS AG Influenza Type B Antigen Screen - Final NEGATIVE INFLUENZA B VIRUS AG *Q Meaningful Use (ADM) - VTE *Q VTE Criteria *Q: - Stroke *Q Stroke Criteria *Q: - AMI *Q AMI Criteria *Q: Problem List Initiated/Reviewed/Updated: Yes Orders Last 24hrs: Active Orders 24 hr Category Date Time Status Diltiazem [Cardizem] 100 mg Med 07/28/17 16:15 Active Sodium Chloride 0.9% [Normal Saline] 100 ml IV TITRATE Flecainide [Tambocor] Med 07/28/17 21:00 Ordered 50 mg PO BID Sodium Chloride 0.9% [Normal Saline] 1,000 ml Med 07/28/17 17:30 Active IV ASDIRECTED Medication Orders Flecainide Acetate (Tambocor) 50 mg PO BID ALEC Magnesium Sulfate 2 gm/ Premix 50 mls @ 12.5 mls/hr IV ONETIME ONE Stop: 07/28/17 19:28 Last Admin: 07/28/17 15:39 Dose: 12.5 mls/hr Diltiazem HCl 100 mg/ Sodium (Chloride) 100 mls @ 5 mls/hr IV TITRATE ALEC; 5 MG /HR PRN Reason: Protocol Last Admin: 07/28/17 16:31 Dose: 5 mg/hr, 5 mls/hr Sodium Chloride (Normal Saline) 1,000 mls @ 400 mls/hr IV ASDIRECTED ALEC Assessment/Plan Comment:: Assessment/Plan: #1. SVT: Will continue with diltiazem at 240mg/24 hrs her BP has been 120 systolic. Will start Tambocor (flecainide) 50mg bid and increase if needed to hold her in a normal rate.. #2. HTN: Has been stable of the meds at home. #3. Leucocytosis: WBC 17,000 90% neuts. Urine is shows a few bacteria. This may be do to stress with dehydration. I see no evidence of a septic condition presently. #4. HLD: Will check Lipid in the morning and begin Crestor rather than simvastatin. #5. S/P DVT: Not active presently.
[2017-07-28] MEDS ORDERED: Flecainide 50 MG Tab PO SCH ×2 (18:30→21:00)
[2017-07-28] MEDS ORDERED: Ondansetron 4 MG Tab.DIS PO SCH (19:30)
[2017-07-28] MEDS: Acetaminophen 325 MG Tab PO PRN (21:30)
[2017-07-28] MEDS: Sodium Chloride 0.9% 1,000 ML IV SCH (23:52)
[2017-07-29] MEDS: Sodium Chloride 0.9% 1,000 ML IV SCH ×2 (04:36→09:49)
[2017-07-29] MEDS: Acetaminophen 325 MG Tab PO PRN ×3 (05:37→23:48)
[2017-07-29] MEDS: Potassium Chloride 10 MEQ Cap.ER PO SCH ×2 (10:06→16:34)
--- NOTE | 2017-07-29 17:47 | PCM.PN ---
- General Info Date of Service: 07/29/17 Admission Dx/Problem (Free Text): She has had an good day and BP has improved. She is concerned about swelling of her left leg but she has had this since her DVT several years ago. She did know that she peaked a fever this afternoon andhas been able to eat without difficulty. - Review of Systems General: Reports: Weakness HEENT: Reports: No Symptoms Pulmonary: Reports: No Symptoms Cardiovascular: Reports: No Symptoms Gastrointestinal: Reports: No Symptoms Genitourinary: Reports: No Symptoms Musculoskeletal: Reports: No Symptoms Skin: Reports: No Symptoms Neurological: Reports: No Symptoms Psychiatric: Reports: No Symptoms - Patient Data Vitals - Most Recent: Last Vital Signs Temp 100.5 F 07/29/17 16:39 Pulse 75 07/29/17 16:39 Resp 17 07/29/17 16:39 BP 133/61 07/29/17 16:39 Pulse Ox 98 07/29/17 16:39 Weight - Most Recent: 205 lb 15.999 oz I&O - Last 24 Hours: Intake & Output 07/29/17 07/29/17 07/29/17 06:59 14:59 22:59 Intake Total 2498 400 Output Total 200 700 250 Balance 2298 -300 -250 Lab Results Last 24 Hours: Laboratory Results - last 24 hr 07/29/17 07/29/17 Range/Units 04:35 04:40 WBC 7.4 (4.5-11.0) K/uL RBC 3.91 (3.30-5.50) M/uL Hgb 12.7 D (12.0-15.0) g/dL Hct 38.2 (36.0-48.0) % MCV 98 (80-98) fL MCH 33 H (27-31) pg MCHC 33 (32-36) % Plt Count 91 L (150-400) K/uL Neut % (Auto) 72 H (36-66) % Lymph % (Auto) 16 L (24-44) % [place] % (Auto) 11 H (2-6) % Eos % (Auto) 1 L (2-4) % Baso % (Auto) 0 (0-1) % Sodium 143 (140-148) mmol/L Potassium 3.5 L (3.6-5.2) mmol/L Chloride 113 H (100-108) mmol/L Carbon Dioxide 19 L (21-32) mmol/L Anion Gap 14.5 H (5.0-14.0) mmol/L BUN 11 (7-18) mg/dL Creatinine 0.8 (0.6-1.0) mg/dL Est Cr Clr Drug Dosing 66.45 mL/min Estimated GFR (MDRD) > 60 (>60) Glucose 92 (74-106) mg/dL Calcium 7.8 L (8.5-10.1) mg/dL Nate Results Last 24 Hours: Microbiology 07/28/17 15:57 Influenza Type A Antigen Screen - Final Nasopharyngeal Swab - Nare, Unspecified NEGATIVE INFLUENZA A VIRUS AG Influenza Type B Antigen Screen - Final NEGATIVE INFLUENZA B VIRUS AG Med Orders - Current: Current Medications Acetaminophen (Tylenol) 650 mg PO Q4H PRN PRN Reason: Pain Last Admin: 07/29/17 16:33 Dose: 650 mg Sodium Chloride (Normal Saline) 1,000 mls @ 100 mls/hr IV ASDIRECTED [facility] Last Admin: 07/29/17 09:49 Dose: 200 mls/hr Ondansetron HCl (Zofran Odt) 4 mg PO ASDIRECTED ALEC Potassium Chloride (Potassium Chloride) 10 meq PO BIDMEALS [facility] Last Admin: 07/29/17 16:34 Dose: 10 meq Discontinued Medications Adenosine (Adenocard) Confirm Administered Dose 18 mg .ROUTE .STK-MED ONE Stop: 07/28/17 13:39 Last Admin: 07/28/17 14:11 Dose: Not Given Adenosine (Adenocard) 6 mg IVPUSH NOW ONE Stop: 07/28/17 13:48 Last Admin: 07/28/17 13:47 Dose: 6 mg Adenosine (Adenocard) 12 mg IVPUSH NOW ONE Stop: 07/28/17 13:50 Last Admin: 07/28/17 13:49 Dose: 12 mg Adenosine (Adenocard) 12 mg IVPUSH ONETIME ONE Stop: 07/28/17 15:16 Last Admin: 07/28/17 15:10 Dose: 12 mg Adenosine (Adenocard) 12 mg IV ONETIME ONE Stop: 07/28/17 16:01 Last Admin: 07/28/17 15:50 Dose: 12 mg Diltiazem HCl (Diltiazem) 5 mg IVPUSH ONETIME ONE Stop: 07/28/17 16:00 Last Admin: 07/28/17 17:24 Dose: Not Given Flecainide Acetate (Tambocor) 50 mg PO BID [facility] Last Admin: 07/28/17 19:00 Dose: 50 mg Sodium Chloride (Normal Saline) 1,000 mls @ 999 mls/hr IV ASDIRECTED ALEC Last Admin: 07/28/17 13:45 Dose: 999 mls/hr Sodium Chloride (Normal Saline) 1,000 mls @ 999 mls/hr IV ASDIRECTED ALEC Last Admin: 07/28/17 14:49 Dose: 999 mls/hr Magnesium Sulfate 2 gm/ Premix 50 mls @ 12.5 mls/hr IV ONETIME ONE Stop: 07/28/17 19:28 Last Admin: 07/28/17 15:39 Dose: 12.5 mls/hr Diltiazem HCl 100 mg/ Sodium (Chloride) 100 mls @ 5 mls/hr IV TITRATE ALEC; 5 MG /HR PRN Reason: Protocol Last Titration: 07/29/17 04:36 Dose: 0 mg/hr, 0 mls/hr Sodium Chloride (Normal Saline) 1,000 mls @ 400 mls/hr IV ASDIRECTED [facility] Ketorolac Tromethamine (Toradol) 30 mg IVPUSH ONETIME ONE Stop: 07/28/17 15:04 Last Admin: 07/28/17 15:24 Dose: 30 mg Lorazepam (Ativan) 0.5 mg IVPUSH ONETIME ONE Stop: 07/28/17 15:35 Last Admin: 07/28/17 17:25 Dose: Not Given Metoprolol Tartrate (Lopressor) 50 mg PO ONETIME ONE Stop: 07/28/17 15:16 Last Admin: 07/28/17 15:24 Dose: 50 mg Ondansetron HCl (Zofran) 4 mg IVPUSH ONETIME ONE Stop: 07/28/17 14:02 Last Admin: 07/28/17 16:33 Dose: Not Given - Exam General: Alert, Oriented HEENT: Pupils Equal, Pupils Reactive, EOMI, Mucous Membr. Moist/[place] Neck: Supple Lungs: Clear to Auscultation, Normal Respiratory Effort Cardiovascular: Regular Rate, Regular Rhythm GI/Abdominal Exam: Normal Bowel Sounds Back Exam: Normal Inspection Extremities: Normal Inspection, Normal Range of Motion, Other (slight enlargement of the left leg but stable.) Peripheral Pulses: 1+: Radial (L), Radial (R) Skin: Warm, Dry, Intact Psy/Mental Status: Alert, Normal Affect, Normal Mood - Problem List Review Problem List Initiated/Reviewed/Updated: Yes - My Orders Last 24 Hours: My Active Orders 07/28/17 19:15 Sodium Chloride 0.9% [Normal Saline] 1,000 ml IV ASDIRECTED 07/28/17 19:16 Patient Status [ADT] Routine Oxygen Therapy [RC] PRN VTE/DVT Education [RC] Per Unit Routine Vital Signs [RC] Q4H Resuscitation Status Routine 07/28/17 19:30 Ondansetron [Zofran ODT] 4 mg PO ASDIRECTED 07/28/17 21:20 Acetaminophen [Tylenol] 650 mg PO Q4H PRN 07/29/17 09:30 Potassium Chloride 10 meq PO BIDMEALS 07/29/17 Breakfast Regular Diet [DIET] - Plan Plan:: Assessment/Plan: #1. SVT: Will continue with diltiazem at 240mg/24 hrs her BP has been 120 systolic. She was unable to tolerate Tambocor due to QT prolongation. Will restart Diltiazem and discharge home. #2. HTN: Has been stable. #3. Leucocytosis: WBC Normal today. Urine is shows a few bacteria. Dehydration resolved. I see no evidence of a septic condition presently. #4. HLD: Will begin Crestor rather than simvastatin. #5. S/P DVT: Not active presently.
--- NOTE | 2017-07-29 17:56 | PCM.DCSUM1 ---
Discharge Summary - Hospital Course Brief History: Admitted with severe dehydration and tachycardia requiring Adenocine 5 times to hold her rate. Was admitted to the ICU and stablized. - Discharge Data Discharge Date: 07/30/17 Discharge Disposition: Home, Self-Care 01 Condition: Fair - Patient Summary/Data Hospital Course: She came in with a heart rate of 240 and given adenosine and converted to NSR. She was unable to tolerate Flecainide but did well after hydration I also started Lanoxin and increased the cardiazem to 240 bid. She said the day of discharge she had diarrhea will do stool cultures etc as an out patient. She will not return to work until next week. - Patient Instructions Diet: Heart Healthy Diet - Discharge Plan Home Medications: Home Meds Diltiazem HCl [Cartia Xt] 1 tab PO DAILY 07/28/17 [History] Ondansetron 1 tab PO ASDIRECTED 07/28/17 [History] Oseltamivir Phosphate 1 tab PO ASDIRECTED 07/28/17 [History] Forms: ED Department Discharge Referrals: Matteo Johnson Sr, MD [Primary Care Provider] - - Discharge Summary/Plan Comment Discharge Summary/Plan Comment: Assessment/Plan: #1. SVT: Will continue with diltiazem at 240mg bid hrs her BP has been 130 systolic. She was unable to tolerate Tambocor due to QT prolongation. Will discharge home. #2. HTN: Has been stable. #3. Leucocytosis: resolved. #4. HLD: Will begin Crestor rather than simvastatin. #5. S/P DVT: Not active presently. Will see in the office in one week or sooner if needed - Review of Systems General: Reports: No Symptoms - Patient Data Vitals - Most Recent: Last Vital Signs Temp 100.5 F 07/29/17 16:39 Pulse 75 07/29/17 16:39 Resp 17 07/29/17 16:39 BP 133/61 07/29/17 16:39 Pulse Ox 98 07/29/17 16:39 Weight - Most Recent: 205 lb 15.999 oz I&O - Last 24 hours: Intake & Output 07/29/17 07/29/17 07/29/17 06:59 14:59 22:59 Intake Total 2498 400 Output Total 200 700 250 Balance 2298 -300 -250 Lab Results - Last 24 hrs: Laboratory Results - last 24 hr 07/29/17 07/29/17 Range/Units 04:35 04:40 WBC 7.4 (4.5-11.0) K/uL RBC 3.91 (3.30-5.50) M/uL Hgb 12.7 D (12.0-15.0) g/dL Hct 38.2 (36.0-48.0) % MCV 98 (80-98) fL MCH 33 H (27-31) pg MCHC 33 (32-36) % Plt Count 91 L (150-400) K/uL Neut % (Auto) 72 H (36-66) % Lymph % (Auto) 16 L (24-44) % [place] % (Auto) 11 H (2-6) % Eos % (Auto) 1 L (2-4) % Baso % (Auto) 0 (0-1) % Sodium 143 (140-148) mmol/L Potassium 3.5 L (3.6-5.2) mmol/L Chloride 113 H (100-108) mmol/L Carbon Dioxide 19 L (21-32) mmol/L Anion Gap 14.5 H (5.0-14.0) mmol/L BUN 11 (7-18) mg/dL Creatinine 0.8 (0.6-1.0) mg/dL Est Cr Clr Drug Dosing 66.45 mL/min Estimated GFR (MDRD) > 60 (>60) Glucose 92 (74-106) mg/dL Calcium 7.8 L (8.5-10.1) mg/dL [facility]I Results - Last 24 hrs: Microbiology 07/28/17 15:57 Influenza Type A Antigen Screen - Final Nasopharyngeal Swab - Nare, Unspecified NEGATIVE INFLUENZA A VIRUS AG Influenza Type B Antigen Screen - Final NEGATIVE INFLUENZA B VIRUS AG Med Orders - Current: Current Medications Acetaminophen (Tylenol) 650 mg PO Q4H PRN PRN Reason: Pain Last Admin: 07/29/17 16:33 Dose: 650 mg Sodium Chloride (Normal Saline) 1,000 mls @ 100 mls/hr IV ASDIRECTED [facility] Last Admin: 07/29/17 09:49 Dose: 200 mls/hr Ondansetron HCl (Zofran Odt) 4 mg PO ASDIRECTED [facility] Potassium Chloride (Potassium Chloride) 10 meq PO BIDMEALS [facility] Last Admin: 07/29/17 16:34 Dose: 10 meq Discontinued Medications Adenosine (Adenocard) Confirm Administered Dose 18 mg .ROUTE .STK-MED ONE Stop: 07/28/17 13:39 Last Admin: 07/28/17 14:11 Dose: Not Given Adenosine (Adenocard) 6 mg IVPUSH NOW ONE Stop: 07/28/17 13:48 Last Admin: 07/28/17 13:47 Dose: 6 mg Adenosine (Adenocard) 12 mg IVPUSH NOW ONE Stop: 07/28/17 13:50 Last Admin: 07/28/17 13:49 Dose: 12 mg Adenosine (Adenocard) 12 mg IVPUSH ONETIME ONE Stop: 07/28/17 15:16 Last Admin: 07/28/17 15:10 Dose: 12 mg Adenosine (Adenocard) 12 mg IV ONETIME ONE Stop: 07/28/17 16:01 Last Admin: 07/28/17 15:50 Dose: 12 mg Diltiazem HCl (Diltiazem) 5 mg IVPUSH ONETIME ONE Stop: 07/28/17 16:00 Last Admin: 07/28/17 17:24 Dose: Not Given Flecainide Acetate (Tambocor) 50 mg PO BID [facility] Last Admin: 07/28/17 19:00 Dose: 50 mg Sodium Chloride (Normal Saline) 1,000 mls @ 999 mls/hr IV ASDIRECTED [facility] Last Admin: 07/28/17 13:45 Dose: 999 mls/hr Sodium Chloride (Normal Saline) 1,000 mls @ 999 mls/hr IV ASDIRECTED [facility] Last Admin: 07/28/17 14:49 Dose: 999 mls/hr Magnesium Sulfate 2 gm/ Premix 50 mls @ 12.5 mls/hr IV ONETIME ONE Stop: 07/28/17 19:28 Last Admin: 07/28/17 15:39 Dose: 12.5 mls/hr Diltiazem HCl 100 mg/ Sodium (Chloride) 100 mls @ 5 mls/hr IV TITRATE [facility]; 5 MG /HR PRN Reason: Protocol Last Titration: 07/29/17 04:36 Dose: 0 mg/hr, 0 mls/hr Sodium Chloride (Normal Saline) 1,000 mls @ 400 mls/hr IV ASDIRECTED [facility] Ketorolac Tromethamine (Toradol) 30 mg IVPUSH ONETIME ONE Stop: 07/28/17 15:04 Last Admin: 07/28/17 15:24 Dose: 30 mg Lorazepam (Ativan) 0.5 mg IVPUSH ONETIME ONE Stop: 07/28/17 15:35 Last Admin: 07/28/17 17:25 Dose: Not Given Metoprolol Tartrate (Lopressor) 50 mg PO ONETIME ONE Stop: 07/28/17 15:16 Last Admin: 07/28/17 15:24 Dose: 50 mg Ondansetron HCl (Zofran) 4 mg IVPUSH ONETIME ONE Stop: 07/28/17 14:02 Last Admin: 07/28/17 16:33 Dose: Not Given - Exam General: Reports: Alert, Oriented HEENT: Reports: Pupils Equal, Pupils Reactive, EOMI, Mucous Membr. Moist/[place] Neck: Reports: Supple Lungs: Reports: Clear to Auscultation, Normal Respiratory Effort Cardiovascular: Reports: Regular Rate, Regular Rhythm GI/Abdominal Exam: Normal Bowel Sounds, Soft, Non-Tender, No Organomegaly, No Distention, No Abnormal Bruit, No Mass, Pelvis Stable Extremities: Other (minimum swelling left ankle.) Neurological: Reports: No New Focal Deficit Psy/Mental Status: Reports: Alert, Normal Affect, Normal Mood *Q Meaningful Use (DIS) - VTE *Q VTE Criteria *Q: - Stroke *Q Stroke Criteria *Q: - AMI *Q AMI Criteria *Q:
[2017-07-29] MEDS: Diltiazem 120 MG Cap.CD PO SCH (18:21)
[2017-07-29] MEDS ORDERED: Digoxin 50 MCG/ML Soln 60 ML Bottle PO STA ×2 (18:36→18:45)
[2017-07-29] MEDS ORDERED: Digoxin 125 MCG Tab PO ONE ×2 (19:00→22:00)
[2017-07-29] MEDS ORDERED: Digoxin 125 MCG Tab ONE (19:37)
[2017-07-29] MEDS ORDERED: Rosuvastatin 10 MG Tab PO SCH (21:00)
[2017-07-29] MEDS ORDERED: Digoxin 50 MCG/ML Soln 60 ML Bottle PO ONE (22:00)
--- NOTE | 2017-07-30 07:49 | PCM.PN ---
- General Info Date of Service: 07/30/17 Subjective Update: She has no complaints and feeling good. - Review of Systems General: Reports: Weakness HEENT: Reports: No Symptoms Pulmonary: Reports: No Symptoms Cardiovascular: Reports: No Symptoms Gastrointestinal: Reports: No Symptoms Genitourinary: Reports: No Symptoms Musculoskeletal: Reports: No Symptoms Skin: Reports: No Symptoms Neurological: Reports: No Symptoms Psychiatric: Reports: No Symptoms - Patient Data Vitals - Most Recent: Last Vital Signs Temp 99.5 F 07/30/17 04:00 Pulse 70 07/30/17 04:00 Resp 20 07/30/17 04:00 BP 122/65 07/30/17 04:00 Pulse Ox 94 L 07/30/17 04:00 Weight - Most Recent: 207 lb 3.2 oz I&O - Last 24 Hours: Intake & Output 07/29/17 07/30/17 07/30/17 22:59 06:59 14:59 Intake Total 1981 480 Output Total 650 3200 Balance 1331 -2720 Med Orders - Current: Current Medications Acetaminophen (Tylenol) 650 mg PO Q4H PRN PRN Reason: Pain Last Admin: 07/29/17 23:48 Dose: 650 mg Digoxin (Lanoxin) 125 mcg PO DAILY@1300 [facility] Diltiazem HCl (Cardizem Cd) 240 mg PO DAILY [facility] Last Admin: 07/29/17 18:21 Dose: 240 mg Ondansetron HCl (Zofran Odt) 4 mg PO ASDIRECTED [facility] Potassium Chloride (Potassium Chloride) 10 meq PO BIDMEALS [facility] Last Admin: 07/29/17 16:34 Dose: 10 meq Rosuvastatin Calcium (Crestor) 10 mg PO BEDTIME [facility] Last Admin: 07/29/17 21:13 Dose: 10 mg Discontinued Medications Adenosine (Adenocard) Confirm Administered Dose 18 mg .ROUTE .STK-MED ONE Stop: 07/28/17 13:39 Last Admin: 07/28/17 14:11 Dose: Not Given Adenosine (Adenocard) 6 mg IVPUSH NOW ONE Stop: 07/28/17 13:48 Last Admin: 07/28/17 13:47 Dose: 6 mg Adenosine (Adenocard) 12 mg IVPUSH NOW ONE Stop: 07/28/17 13:50 Last Admin: 07/28/17 13:49 Dose: 12 mg Adenosine (Adenocard) 12 mg IVPUSH ONETIME ONE Stop: 07/28/17 15:16 Last Admin: 07/28/17 15:10 Dose: 12 mg Adenosine (Adenocard) 12 mg IV ONETIME ONE Stop: 07/28/17 16:01 Last Admin: 07/28/17 15:50 Dose: 12 mg Digoxin (Lanoxin) 0 mcg PO ONETIME ONE Stop: 07/29/17 22:01 Digoxin (Lanoxin) 0 mcg PO DAILY@1300 [facility] Digoxin (Lanoxin) 0.25 mcg PO NOW STA Stop: 07/29/17 18:37 Last Admin: 07/29/17 19:12 Dose: Not Given Digoxin (Lanoxin) 250 mcg PO ONETIME ONE Stop: 07/29/17 19:01 Last Admin: 07/29/17 19:45 Dose: 250 mcg Digoxin (Lanoxin) 250 mcg PO ONETIME ONE Stop: 07/29/17 22:01 Last Admin: 07/29/17 23:02 Dose: 250 mcg Digoxin (Lanoxin) Confirm Administered Dose 500 mcg .ROUTE .STK-MED ONE Stop: 07/29/17 19:38 Last Admin: 07/29/17 19:47 Dose: Not Given Diltiazem HCl (Diltiazem) 5 mg IVPUSH ONETIME ONE Stop: 07/28/17 16:00 Last Admin: 07/28/17 17:24 Dose: Not Given Flecainide Acetate (Tambocor) 50 mg PO BID [facility] Last Admin: 07/28/17 19:00 Dose: 50 mg Sodium Chloride (Normal Saline) 1,000 mls @ 999 mls/hr IV ASDIRECTED [facility] Last Admin: 07/28/17 13:45 Dose: 999 mls/hr Sodium Chloride (Normal Saline) 1,000 mls @ 999 mls/hr IV ASDIRECTED [facility] Last Admin: 07/28/17 14:49 Dose: 999 mls/hr Magnesium Sulfate 2 gm/ Premix 50 mls @ 12.5 mls/hr IV ONETIME ONE Stop: 07/28/17 19:28 Last Admin: 07/28/17 15:39 Dose: 12.5 mls/hr Diltiazem HCl 100 mg/ Sodium (Chloride) 100 mls @ 5 mls/hr IV TITRATE [facility]; 5 MG /HR PRN Reason: Protocol Last Titration: 07/29/17 04:36 Dose: 0 mg/hr, 0 mls/hr Sodium Chloride (Normal Saline) 1,000 mls @ 400 mls/hr IV ASDIRECTED [facility] Sodium Chloride (Normal Saline) 1,000 mls @ 100 mls/hr IV ASDIRECTED [facility] Last Admin: 07/29/17 09:49 Dose: 200 mls/hr Ketorolac Tromethamine (Toradol) 30 mg IVPUSH ONETIME ONE Stop: 07/28/17 15:04 Last Admin: 07/28/17 15:24 Dose: 30 mg Lorazepam (Ativan) 0.5 mg IVPUSH ONETIME ONE Stop: 07/28/17 15:35 Last Admin: 07/28/17 17:25 Dose: Not Given Metoprolol Tartrate (Lopressor) 50 mg PO ONETIME ONE Stop: 07/28/17 15:16 Last Admin: 07/28/17 15:24 Dose: 50 mg Ondansetron HCl (Zofran) 4 mg IVPUSH ONETIME ONE Stop: 07/28/17 14:02 Last Admin: 07/28/17 16:33 Dose: Not Given - Exam General: Alert, Oriented HEENT: Pupils Equal, Pupils Reactive, EOMI, Mucous Membr. Moist/[place] Neck: Supple Lungs: Clear to Auscultation, Normal Respiratory Effort Cardiovascular: Regular Rate, Regular Rhythm GI/Abdominal Exam: Normal Bowel Sounds, Soft, Non-Tender, No Organomegaly, No Distention, No Abnormal Bruit, No Mass, Pelvis Stable Extremities: Pedal Edema Peripheral Pulses: 1+: Radial (L), Radial (R) Skin: Warm, Dry, Intact Neurological: No New Focal Deficit Psy/Mental Status: Alert, Normal Affect, Normal Mood - Problem List Review Problem List Initiated/Reviewed/Updated: Yes - My Orders Last 24 Hours: My Active Orders 07/29/17 09:30 Potassium Chloride 10 meq PO BIDMEALS 07/29/17 18:00 Diltiazem [Cardizem CD] 240 mg PO DAILY 07/29/17 19:12 Convert IV to Saline Lock [OM.PC] Routine 07/29/17 21:00 Rosuvastatin [Crestor] 10 mg PO BEDTIME 07/29/17 Breakfast Regular Diet [DIET] 07/30/17 13:00 Digoxin [Lanoxin] 125 mcg PO DAILY@1300 - Plan Plan:: Assessment/Plan: #1. SVT: Will continue with diltiazem at 240mg bid hrs her BP has been 130 systolic. She was unable to tolerate Tambocor due to QT prolongation. Will discharge home. #2. HTN: Has been stable. #3. Leucocytosis: resolved. #4. HLD: Will begin Crestor rather than simvastatin. #5. S/P DVT: Not active presently.
[2017-07-30] MEDS: Potassium Chloride 10 MEQ Cap.ER PO SCH (08:38)
[2017-07-30] MEDS: Diltiazem 120 MG Cap.CD PO SCH (08:38)
[2017-07-30 08:39] VITALS: BP 133/56
[2017-07-30] MEDS ORDERED: Digoxin 50 MCG/ML Soln 60 ML Bottle PO SCH (13:00)
[2017-07-30] MEDS ORDERED: Digoxin 125 MCG Tab PO SCH (13:00)
== END 2017-07-30 09:10 | disposition home or self-care (01) | DRG 310 ==
LOC: JP.ED 13:31 → JP.ICU 15:40
PROVIDERS: ADMIT Internal Medicine; ATTEND Internal Medicine
DX: I47.1 Supraventricular tachycardia (principal); E86.0 Dehydration; E83.42 Hypomagnesemia; I10 Essential (primary) hypertension; Z86.718 Personal history of other venous thrombosis and embolism; E78.5 Hyperlipidemia, unspecified; Z88.2 Allergy status to sulfonamides; R11.2 Nausea with vomiting, unspecified; R19.7 Diarrhea, unspecified
CPT/HCPCS: 36415; 71045; 71045-26; 80048; 80053; 81001; 83735; 83880; 84443; 84484; 85025; 85379; 87804; 96361; 96374; 96375; 96376; 99285-25; A9270-GY; J0153; J1885; J3475; J3490; J7030; J7040

== ENCOUNTER 2019-04-18 17:39 | Inpatient (IN) | payer OTHER ==
[2019-04-18] MEDS ORDERED: Sodium Chloride 0.9% 10 ML Syringe FLUSH PRN (18:16)
[2019-04-18] MEDS ORDERED: HYDROmorphone 0.5 MG/0.5 ML Syringe IVPUSH ONE (18:17)
[2019-04-18] MEDS ORDERED: Ondansetron 4 MG/2 ML SDV IVPUSH ONE (18:17)
[2019-04-18] MEDS ORDERED: Sodium Chloride 0.9% 1,000 ML IV ONE ×2 (18:17→19:15)
--- NOTE | 2019-04-18 18:18 | EDM.PDOC ---
ED HPI GENERAL MEDICAL PROBLEM - General Chief Complaint: Gastrointestinal Problem Stated Complaint: VOMITTING,DIARRHEA,RAPID HEART RATE Time Seen by Provider: 04/18/19 18:10 Source of Information: Reports: Patient History Limitations: Reports: No Limitations - History of Present Illness INITIAL COMMENTS - FREE TEXT/NARRATIVE: Sunshine is a 63 year old female, presents to the ED today with c/o sudden onset of nausea, vomiting and diarrhea since 1500. Patient just restarted Cipro 2 days ago for UTI that she reports she has been having difficulty getting rid of. Patient c/o fever/chills and left flank pain. Patient has not taken any medications for her symptoms otherwise. Patient denies any significant abdominal pain. Patient denies any hematochezia or hematemesis. Onset: Today, Sudden Left Abdomen Pain Score (Numeric/FACES): 6 - Related Data Allergies Allergy/AdvReac Type Severity Reaction Status Date / Time Sulfa (Sulfonamide Allergy Hives Verified 07/28/17 14:01 Antibiotics) Home Meds: Home Meds Ondansetron 1 tab PO ASDIRECTED 07/28/17 [History] Oseltamivir Phosphate 1 tab PO ASDIRECTED 07/28/17 [History] Digoxin [Lanoxin] 125 mcg PO DAILY #30 tablet 07/30/17 [Rx] Diltiazem HCl [Cartia Xt] 1 tab PO BIDAC #0 07/30/17 [Rx] Rosuvastatin [Crestor] 10 mg PO BEDTIME tablet 07/30/17 [Rx] Apixaban [Eliquis] 5 mg PO BID 04/18/19 [History] Past Medical History Cardiovascular History: Reports: Blood Clots/VTE/DVT, High Cholesterol, Hypertension, Other (See Below) Other Cardiovascular History: SVT - Infectious Disease History Infectious Disease History: Reports: Chicken Pox - Past Surgical History Female Surgical History: Reports: Hysterectomy Social & Family History - Tobacco Use Smoking Status *Q: Never Smoker - Caffeine Use Caffeine Use: Reports: Coffee, Tea - Recreational Drug Use Recreational Drug Use: No ED ROS GENERAL - Review of Systems Review Of Systems: ROS reveals no pertinent complaints other than HPI. ED EXAM, GI/ABD - Physical Exam Exam: See Below Exam Limited By: No Limitations General Appearance: Alert, WD/WN, No Apparent Distress Eyes: Bilateral: EOMI Nose: Normal Inspection Throat/Mouth: Normal Oropharynx Head: Atraumatic Neck: Normal Inspection Respiratory/Chest: No Respiratory Distress, Lungs Clear Cardiovascular: Normal Peripheral Pulses, Regular Rate, Rhythm, No Murmur GI/Abdominal Exam: Normal Bowel Sounds, Soft, Non-Tender Back Exam: Normal Inspection, CVA Tenderness (L) Extremities: Normal Inspection Neurological: Alert, Oriented, CN II-XII Intact Psychiatric: Normal Affect, Normal Mood Skin Exam: Warm, Dry, Intact Lymphatic: No Adenopathy Course - Vital Signs Last Recorded V/S: Last Vital Signs Temp 37.3 C 04/18/19 17:48 Pulse 91 04/18/19 17:48 Resp 16 04/18/19 17:48 BP 157/79 H 04/18/19 17:48 Pulse Ox 99 04/18/19 17:48 Sunshine is a 63 year old female, hx of UTI, presents to the ED today with c/o nausea, vomiting and diarrhea. Please refer to HPI and focused exam. Patient arrives here hemodynamically stable, afebrile. Concerns for urosepsis vs. viral gastroenteritis. PIV established. Patient given IV fluids, Zofran and Dilaudid, blood work and UA obtained. Blood work returns with a significantly elevated white count of 28 with a left shift. HGB stable. Potassium mildly low at 3.5, gap of 14.5, GFR of 56, CRP elevated at 1.1 with a lactic acid of 2.2. Patient given a second liter of NS and started on Zosyn, unable to provide UA as of yet. Will plan on admission for sepsis. C diff ordered as well. Discussed case with patient's PCP Dr. Johnson, he will admit patient, sounds like urine culture was sensitive to Cipro so ? if this is urosepsis vs. UTI with gastroenteritis component. Patient updated on plan of care and is agreeable. VS remain stable at this time , procalcitonin is pending. - Orders/Labs/Meds Orders: Active Orders 24 hr Category Date Time Status Peripheral IV Care [RC] . DIRECTED Care 04/18/19 18:16 Active C Diff [CLOSTRIDIUM DIFFICILE BY PCR] [RM] Stat Lab 04/18/19 19:25 Ordered CULTURE BLOOD [BC] Urgent Lab 04/18/19 19:25 Received CULTURE BLOOD [BC] Urgent Lab 04/18/19 19:30 Received MAGNESIUM [CHEM] Stat Lab 04/18/19 19:35 Ordered PROCALCITONIN [CHEM] Stat Lab 04/18/19 19:29 Ordered UA W/MICROSCOPIC [URIN] Stat Lab 04/18/19 18:17 Ordered Piperacillin/Tazobactam [Zosyn] 4.5 gm Med 04/18/19 19:25 Active Sodium Chloride 0.9% [Normal Saline] 100 ml IV ONETIME Sodium Chloride 0.9% [Normal Saline] 1,000 ml Med 04/18/19 19:15 Active IV .BOLUS Sodium Chloride 0.9% [Saline Flush] Med 04/18/19 18:16 Active 10 ml FLUSH ASDIRECTED PRN Blood Culture x2 Reflex Set [OM.PC] Urgent Oth 04/18/19 19:22 Ordered Isolation [COMM] Stat Oth 04/18/19 19:25 Ordered Peripheral IV Insertion Adult [OM.PC] Routine Oth 04/18/19 18:16 Ordered Medication Orders Sodium Chloride (Normal Saline) 1,000 mls @ 999 mls/hr IV .BOLUS ONE Stop: 04/18/19 20:15 Piperacillin Sod/Tazobactam (Sod 4.5 gm/ Sodium Chloride) 100 mls @ 100 mls/hr IV ONETIME ONE Stop: 04/18/19 20:24 Sodium Chloride (Saline Flush) 10 ml FLUSH ASDIRECTED PRN PRN Reason: Keep Vein Open Last Admin: 04/18/19 19:02 Dose: 10 ml Labs: Laboratory Tests 04/18/19 04/18/19 04/18/19 Range/Units 18:41 18:41 18:41 WBC 28.3 H (4.5-11.0) K/uL RBC 4.63 (3.30-5.50) M/uL Hgb 14.4 (12.0-15.0) g/dL Hct 44.2 (36.0-48.0) % MCV 96 (80-98) fL MCH 31 (27-31) pg MCHC 33 (32-36) % Plt Count 329 (150-400) K/uL Neut % (Auto) 91 H (36-66) % Lymph % (Auto) 2 L (24-44) % [place] % (Auto) 7 H (2-6) % Eos % (Auto) 1 L (2-4) % Baso % (Auto) 0 (0-1) % Sodium 139 L (140-148) mmol/L Potassium 3.5 L (3.6-5.2) mmol/L Chloride 104 (100-108) mmol/L Carbon Dioxide 24 (21-32) mmol/L Anion Gap 14.5 H (5.0-14.0) mmol/L BUN 17 D (7-18) mg/dL Creatinine 1.0 (0.6-1.0) mg/dL Est Cr Clr Drug Dosing 51.81 mL/min Estimated GFR (MDRD) 56 L (>60) Glucose 105 (74-106) mg/dL Lactic Acid 2.2 H (0.4-2.0) mmol/L Calcium 9.6 (8.5-10.1) mg/dL Total Bilirubin 0.3 (0.2-1.0) mg/dL AST 26 (15-37) U/L ALT 37 (12-78) U/L Alkaline Phosphatase 114 (46-116) U/L C-Reactive Protein (0.0-0.3) mg/dL Total Protein 7.9 (6.4-8.2) g/dL Albumin 3.9 (3.4-5.0) g/dL Globulin 4.0 H (2.3-3.5) g/dL Albumin/Globulin Ratio 1.0 L (1.2-2.2) 04/18/19 Range/Units 18:52 WBC (4.5-11.0) K/uL RBC (3.30-5.50) M/uL Hgb (12.0-15.0) g/dL Hct (36.0-48.0) % MCV (80-98) fL MCH (27-31) pg MCHC (32-36) % Plt Count (150-400) K/uL Neut % (Auto) (36-66) % Lymph % (Auto) (24-44) % [place] % (Auto) (2-6) % Eos % (Auto) (2-4) % Baso % (Auto) (0-1) % Sodium (140-148) mmol/L Potassium (3.6-5.2) mmol/L Chloride (100-108) mmol/L Carbon Dioxide (21-32) mmol/L Anion Gap (5.0-14.0) mmol/L BUN (7-18) mg/dL Creatinine (0.6-1.0) mg/dL Est Cr Clr Drug Dosing mL/min Estimated GFR (MDRD) (>60) Glucose (74-106) mg/dL Lactic Acid (0.4-2.0) mmol/L Calcium (8.5-10.1) mg/dL Total Bilirubin (0.2-1.0) mg/dL AST (15-37) U/L ALT (12-78) U/L Alkaline Phosphatase (46-116) U/L C-Reactive Protein 1.10 H (0.0-0.3) mg/dL Total Protein (6.4-8.2) g/dL Albumin (3.4-5.0) g/dL Globulin (2.3-3.5) g/dL Albumin/Globulin Ratio (1.2-2.2) Meds: Medications Generic Name Dose Route Start Last Admin Trade Name Freq PRN Reason Stop Dose Admin Sodium Chloride 1,000 mls @ 999 mls/hr 04/18/19 19:15 Normal Saline IV 04/18/19 20:15 .BOLUS ONE Piperacillin Sod/Tazobactam 100 mls @ 100 mls/hr 04/18/19 19:25 Sod 4.5 gm/ Sodium Chloride IV 04/18/19 20:24 ONETIME ONE Sodium Chloride 10 ml 04/18/19 18:16 04/18/19 19:02 Saline Flush FLUSH 10 ml ASDIRECTED PRN Administration Keep Vein Open Discontinued Medications Generic Name Dose Route Start Last Admin Trade Name Freq PRN Reason Stop Dose Admin Hydromorphone HCl 0.5 mg 04/18/19 18:17 04/18/19 19:04 Dilaudid IVPUSH 04/18/19 18:18 0.5 mg ONETIME ONE Administration Sodium Chloride 1,000 mls @ 999 mls/hr 04/18/19 18:17 04/18/19 19:01 Normal Saline IV 04/18/19 19:17 999 mls/hr .BOLUS ONE Administration Ondansetron HCl 4 mg 04/18/19 18:17 04/18/19 19:00 Zofran IVPUSH 04/18/19 18:18 4 mg ONETIME ONE Administration Departure - Departure Time of Disposition: 20:00 Disposition: Admitted As Inpatient 66 Condition: Fair Clinical Impression: Vomiting, Diarrhea Sepsis Qualifiers: Sepsis type: sepsis due to unspecified organism Sepsis acute organ dysfunction status: without acute organ dysfunction Qualified Code(s): A41.9 - Sepsis, unspecified organism - Discharge Information Referrals: Matteo Johnson Sr, MD [Primary Care Provider] - Forms: ED Department Discharge - My Orders Last 24 Hours: My Active Orders 04/18/19 18:16 Peripheral IV Care [RC] . DIRECTED Sodium Chloride 0.9% [Saline Flush] 10 ml FLUSH ASDIRECTED PRN Peripheral IV Insertion Adult [OM.PC] Routine 04/18/19 18:17 UA W/MICROSCOPIC [URIN] Stat 04/18/19 19:15 Sodium Chloride 0.9% [Normal Saline] 1,000 ml IV .BOLUS 04/18/19 19:22 Blood Culture x2 Reflex Set [OM.PC] Urgent 04/18/19 19:25 C Diff [CLOSTRIDIUM DIFFICILE BY PCR] [RM] Stat CULTURE BLOOD [BC] Urgent Piperacillin/Tazobactam [Zosyn] 4.5 gm Sodium Chloride 0.9% [Normal Saline] 100 ml IV ONETIME Isolation [COMM] Stat 04/18/19 19:29 PROCALCITONIN [CHEM] Stat 04/18/19 19:30 CULTURE BLOOD [BC] Urgent 04/18/19 19:35 MAGNESIUM [CHEM] Stat - Assessment/Plan Last 24 Hours: My Active Orders 04/18/19 18:16 Peripheral IV Care [RC] . DIRECTED Sodium Chloride 0.9% [Saline Flush] 10 ml FLUSH ASDIRECTED PRN Peripheral IV Insertion Adult [OM.PC] Routine 04/18/19 18:17 UA W/MICROSCOPIC [URIN] Stat 04/18/19 19:15 Sodium Chloride 0.9% [Normal Saline] 1,000 ml IV .BOLUS 04/18/19 19:22 Blood Culture x2 Reflex Set [OM.PC] Urgent 04/18/19 19:25 C Diff [CLOSTRIDIUM DIFFICILE BY PCR] [RM] Stat CULTURE BLOOD [BC] Urgent Piperacillin/Tazobactam [Zosyn] 4.5 gm Sodium Chloride 0.9% [Normal Saline] 100 ml IV ONETIME Isolation [COMM] Stat 04/18/19 19:29 PROCALCITONIN [CHEM] Stat 04/18/19 19:30 CULTURE BLOOD [BC] Urgent 04/18/19 19:35 MAGNESIUM [CHEM] Stat
[2019-04-18] MEDS ORDERED: Piperacillin/Tazobactam 4.5 GM in Sodium Chloride 0.9% 100 ML IV ONE (19:25)
--- NOTE | 2019-04-18 20:37 | PCM.HP.2 ---
H&P History of Present Illness - General Date of Service: 04/18/19 Source of Information: Patient History Limitations: Reports: No Limitations - History of Present Illness Initial Comments - Free Text/Narative: Sudden onset of pain at 3PM with N and Vomiting and diarrhea. Pain in the left back. . Pain was heavy dull type in the lower back on the left. Never had a similar problem before. She has not felt good for 1 month. She had a urine culture last week and grew K pneumoniae with sens. to cipro. She has been on Ciprofloxin 500 mg Bid. Onset of Symptoms: Reports: Sudden Location: Reports: Abdomen, Back Severity: Moderate Associated Symptoms: Reports: Nausea/Vomiting, Other (diarrhea yellow in color) Left Abdomen Pain Score (Numeric/FACES): 1 - Related Data Allergies/Adverse Reactions: Allergies Allergy/AdvReac Type Severity Reaction Status Date / Time Sulfa (Sulfonamide Allergy Hives Verified 07/28/17 14:01 Antibiotics) Home Medications: Home Meds Digoxin [Lanoxin] 125 mcg PO DAILY #30 tablet 07/30/17 [Rx] Diltiazem HCl [Cartia Xt] 1 tab PO BIDAC #0 07/30/17 [Rx] Rosuvastatin [Crestor] 10 mg PO BEDTIME tablet 07/30/17 [Rx] Apixaban [Eliquis] 5 mg PO BID 04/18/19 [History] Past Medical History Cardiovascular History: Reports: Blood Clots/VTE/DVT, High Cholesterol, Hypertension, Other (See Below) Other Cardiovascular History: SVT - Infectious Disease History Infectious Disease History: Reports: Chicken Pox - Past Surgical History Female Surgical History: Reports: Hysterectomy Social & Family History - Tobacco Use Smoking Status *Q: Never Smoker - Caffeine Use Caffeine Use: Reports: Coffee, Tea - Recreational Drug Use Recreational Drug Use: No H&P Review of Systems - Review of Systems: Review Of Systems: See Below General: Reports: Fever, Weakness, Fatigue HEENT: Reports: No Symptoms Pulmonary: Reports: No Symptoms Cardiovascular: Reports: No Symptoms Gastrointestinal: Reports: Diarrhea, Nausea, Vomiting Genitourinary: Reports: Dysuria, Burning, Urgency Musculoskeletal: Reports: Back Pain (Mid to lkower back pain not CVA tenderness. ) Skin: Reports: No Symptoms Psychiatric: Reports: No Symptoms Neurological: Reports: Weakness Exam - Exam Exam: See Below - Vital Signs Vital Signs: Last Vital Signs Temp 99.2 F 04/18/19 17:48 Pulse 91 04/18/19 17:48 Resp 16 04/18/19 17:48 BP 157/79 H 04/18/19 17:48 Pulse Ox 99 04/18/19 17:48 Weight: 175 lb - Exam General: Alert, Oriented, 4 HEENT: PERRLA, Hearing Intact, Mucosa Moist & [place], Nares Patent, Normal Nasal Septum, Posterior Pharynx Clear, Conjunctiva Clear, EOMI, EACs Clear, TMs Clear Neck: Supple, Trachea Midline, 2 Lungs: Clear to Auscultation, Normal Respiratory Effort Cardiovascular: Regular Rate, Regular Rhythm GI/Abdominal Exam: Other (tender on the left abd with more pain on the left back.) Back Exam: Other (Pain to palpation mid to lower back.) Extremities: Normal Inspection, Normal Range of Motion, Non-Tender, No Pedal Edema, Normal Capillary Refill Peripheral Pulses: 1+: Radial (L), Radial (R) Skin: Warm, Dry, Intact Neurological: Cranial Nerves Intact, Reflexes Equal Bilateral Neuro Extensive - Mental Status: Alert, Oriented x3, Normal Mood/Affect, Normal Cognition DTR: 1+: Patella (L), Patella (R) Psychiatric: Alert, Normal Affect, Normal Mood - Patient Data Lab Results Last 24 hrs: Laboratory Results - last 24 hr 04/18/19 04/18/19 04/18/19 Range/Units 18:41 18:41 18:41 WBC 28.3 H (4.5-11.0) K/uL RBC 4.63 (3.30-5.50) M/uL Hgb 14.4 (12.0-15.0) g/dL Hct 44.2 (36.0-48.0) % MCV 96 (80-98) fL MCH 31 (27-31) pg MCHC 33 (32-36) % Plt Count 329 (150-400) K/uL Neut % (Auto) 91 H (36-66) % Lymph % (Auto) 2 L (24-44) % Cache % (Auto) 7 H (2-6) % Eos % (Auto) 1 L (2-4) % Baso % (Auto) 0 (0-1) % Sodium 139 L (140-148) mmol/L Potassium 3.5 L (3.6-5.2) mmol/L Chloride 104 (100-108) mmol/L Carbon Dioxide 24 (21-32) mmol/L Anion Gap 14.5 H (5.0-14.0) mmol/L BUN 17 D (7-18) mg/dL Creatinine 1.0 (0.6-1.0) mg/dL Est Cr Clr Drug Dosing 51.81 mL/min Estimated GFR (MDRD) 56 L (>60) Glucose 105 (74-106) mg/dL Lactic Acid 2.2 H (0.4-2.0) mmol/L Calcium 9.6 (8.5-10.1) mg/dL Magnesium (1.8-2.4) mg/dL Total Bilirubin 0.3 (0.2-1.0) mg/dL AST 26 (15-37) U/L ALT 37 (12-78) U/L Alkaline Phosphatase 114 (46-116) U/L C-Reactive Protein (0.0-0.3) mg/dL Total Protein 7.9 (6.4-8.2) g/dL Albumin 3.9 (3.4-5.0) g/dL Globulin 4.0 H (2.3-3.5) g/dL Albumin/Globulin Ratio 1.0 L (1.2-2.2) Procalcitonin ng/mL 04/18/19 04/18/19 04/18/19 Range/Units 18:52 19:29 19:35 WBC (4.5-11.0) K/uL RBC (3.30-5.50) M/uL Hgb (12.0-15.0) g/dL Hct (36.0-48.0) % MCV (80-98) fL MCH (27-31) pg MCHC (32-36) % Plt Count (150-400) K/uL Neut % (Auto) (36-66) % Lymph % (Auto) (24-44) % Cache % (Auto) (2-6) % Eos % (Auto) (2-4) % Baso % (Auto) (0-1) % Sodium (140-148) mmol/L Potassium (3.6-5.2) mmol/L Chloride (100-108) mmol/L Carbon Dioxide (21-32) mmol/L Anion Gap (5.0-14.0) mmol/L BUN (7-18) mg/dL Creatinine (0.6-1.0) mg/dL Est Cr Clr Drug Dosing mL/min Estimated GFR (MDRD) (>60) Glucose (74-106) mg/dL Lactic Acid (0.4-2.0) mmol/L Calcium (8.5-10.1) mg/dL Magnesium 1.8 (1.8-2.4) mg/dL Total Bilirubin (0.2-1.0) mg/dL AST (15-37) U/L ALT (12-78) U/L Alkaline Phosphatase (46-116) U/L C-Reactive Protein 1.10 H (0.0-0.3) mg/dL Total Protein (6.4-8.2) g/dL Albumin (3.4-5.0) g/dL Globulin (2.3-3.5) g/dL Albumin/Globulin Ratio (1.2-2.2) Procalcitonin < 0.05 ng/mL Result Diagrams: 04/19/19 04:38 04/19/19 04:38 Problem List Initiated/Reviewed/Updated: Yes Orders Last 24hrs: Active Orders 24 hr Category Date Time Status Peripheral IV Care [RC] . DIRECTED Care 04/18/19 18:16 Active C Diff [CLOSTRIDIUM DIFFICILE BY PCR] [RM] Stat Lab 04/18/19 20:16 Ordered CULTURE BLOOD [BC] Urgent Lab 04/18/19 19:25 Received CULTURE BLOOD [BC] Urgent Lab 04/18/19 19:30 Received UA W/MICROSCOPIC [URIN] Stat Lab 04/18/19 18:17 Ordered Sodium Chloride 0.9% [Saline Flush] Med 04/18/19 18:16 Active 10 ml FLUSH ASDIRECTED PRN Blood Culture x2 Reflex Set [OM.PC] Urgent Oth 04/18/19 19:22 Ordered Isolation [COMM] Stat Oth 04/18/19 19:25 Ordered Peripheral IV Insertion Adult [OM.PC] Routine Oth 04/18/19 18:16 Ordered Medication Orders Sodium Chloride (Saline Flush) 10 ml FLUSH ASDIRECTED PRN PRN Reason: Keep Vein Open Last Admin: 04/18/19 19:02 Dose: 10 ml Assessment/Plan Comment:: Assessment/Plan: #1. Back and abd pain. With the sudden onset of pain makes one think of a kidney stone or another acute problem. I will get a Ultrasound of the abd tonight and consider a CT of the abd. tomorrow if an etiology is not found. Blood cultures are pending and UA is pending. #2. Recent UTI treated with Cipro. HTN: Blood pressure is elevated will continue with meds. for BP #4. HLD: Will continue with Rosuvastatin #5. Diarrhea- Stool tests pending. - Mortality Measure Prognosis:: Good
[2019-04-18] MEDS ORDERED: ONDANSETRON PO SCH (21:15)
[2019-04-18] MEDS ORDERED: Ondansetron 4 MG/2 ML SDV IVPUSH PRN (22:33)
[2019-04-18] MEDS: cefTRIAXone 1 GM in Sodium Chloride 0.9% 50 ML IV SCH (22:48)
[2019-04-18] MEDS: Acetaminophen 325 MG Tab PO PRN (23:00)
--- NOTE | 2019-04-18 23:06 | CRLUS ---
HISTORY: Abdominal pain COMPARISON: None available. TECHNIQUE: Ultrasound examination of the abdomen was performed. FINDINGS: The gallbladder is normal in appearance with no sign of cholelithiasis or acute cholecystitis. The common bile duct is normal in caliber at 4 mm. The liver shows no sign of mass, contour abnormality or ascites. There is diffusely increased hepatic echogenicity consistent with fatty infiltration of the liver. The pancreatic head and body were examined and are normal in appearance. The abdominal aorta is normal in caliber. The portions of the inferior vena cava that are seen are normal in appearance as well. The kidneys are unremarkable, the right measuring 9.6 cm and the left measuring 10.3 cm in length. The spleen is normal. IMPRESSION: Fatty infiltration of the liver. Otherwise normal ultrasound examination of the abdomen. Dictated by Kaushik Plummer MD @ Apr 18 2019 11:03PM Signed by Dr. Kaushik Plummer @ Apr 18 2019 11:04PM
--- NOTE | 2019-04-19 00:24 | CRLCR ---
INDICATION: Cough COMPARISON: None available. FINDINGS: PA and lateral views of the chest were obtained. The lungs are clear. No focal or diffuse infiltrates are present. The heart is normal in size. The mediastinum is normal in appearance. The osseous structures are normal in appearance for the patient`s age. IMPRESSION: Normal chest 2 views. Dictated by Kaushik Plummer MD @ Apr 19 2019 12:22AM Signed by Dr. Kaushik Plummer @ Apr 19 2019 12:23AM
[2019-04-19] MEDS: Sodium Chloride 0.9% 1,000 ML IV SCH (05:42)
[2019-04-19] MEDS ORDERED: Diltiazem 120 MG Cap.CD PO SCH (07:30)
[2019-04-19] MEDS: Diltiazem 120 MG Cap.CD PO SCH (08:41)
[2019-04-19] MEDS: Apixaban 5 MG Tab PO SCH ×2 (08:46→20:44)
[2019-04-19] MEDS ORDERED: FLU Vacc QS2019-20(6MOS+)/PF 60 MCG/0.5 ML SYRINGE IM ONE (10:00)
[2019-04-19] MEDS ORDERED: Iopamidol 612 MG/ML 150 ML Bottle IV PRN (13:37)
[2019-04-19] MEDS ORDERED: Sodium Chloride 0.9% 10 ML Syringe FLUSH SCH (14:00)
[2019-04-19] MEDS: Digoxin 125 MCG Tab PO SCH ×2 (14:25→17:51)
--- NOTE | 2019-04-19 14:30 | CT ---
IAbdomen Pelvis wo Cont CLINICAL HISTORY: Abdominal pain COMPARISON: None. TECHNIQUE: Axial tomographic images are obtained from the dome of the diaphragm to the pubic symphysis without IV contrast enhancement. No oral contrast was used. Auto dosage reduction and iterative reconstruction techniques employed. FINDINGS: The lung bases show some patchy bibasal atelectasis. The liver is mildly enlarged. There is diffuse fatty infiltration. The gallbladder is contracted. The spleen has a normal size and contour. The pancreas shows no mass or inflammatory change. The adrenal glands appear normal bilaterally. The kidneys show no stones. There is some left-sided pelvocaliectasis.. Ureters have a normal course and caliber. The aorta has a normal contour. There is minimal retroperitoneal adenopathy. There are scattered mildly prominent lymph nodes throughout the mesentery. The appendix is not definitively identified. There are no inflammatory changes in the right lower quadrant. There is a fluid-filled cecum Abdominal has a normal contour IMPRESSION: Patchy bibasal subsegmental atelectasis Mild hepatomegaly with moderate diffuse fatty infiltration Contracted gallbladder without obvious stones Scattered prominent mesenteric lymph nodes. This can be seen with mesenteric adenitis
[2019-04-19] MEDS: Acetaminophen 325 MG Tab PO PRN (17:51)
--- NOTE | 2019-04-19 18:00 | PCM.PN ---
- General Info Date of Service: 04/19/19 Functional Status: Reports: Pain Controlled - Review of Systems General: Reports: Weakness HEENT: Reports: No Symptoms Pulmonary: Reports: No Symptoms Cardiovascular: Reports: No Symptoms Gastrointestinal: Reports: Abdominal Pain, Diarrhea Genitourinary: Reports: No Symptoms Musculoskeletal: Reports: Back Pain Skin: Reports: No Symptoms Neurological: Reports: No Symptoms Psychiatric: Reports: No Symptoms - Patient Data Vitals - Most Recent: Last Vital Signs Temp 99.9 F 04/19/19 13:27 Pulse 81 04/19/19 17:51 Resp 12 04/19/19 13:27 BP 129/54 L 04/19/19 13:27 Pulse Ox 93 L 04/19/19 13:27 Weight - Most Recent: 184 lb I&O - Last 24 Hours: Intake & Output 04/19/19 04/19/19 04/19/19 06:59 14:59 22:59 Intake Total 986 300 Balance 986 300 Lab Results Last 24 Hours: Laboratory Results - last 24 hr 04/18/19 04/18/19 04/18/19 Range/Units 18:41 18:41 18:41 WBC 28.3 H (4.5-11.0) K/uL RBC 4.63 (3.30-5.50) M/uL Hgb 14.4 (12.0-15.0) g/dL Hct 44.2 (36.0-48.0) % MCV 96 (80-98) fL MCH 31 (27-31) pg MCHC 33 (32-36) % Plt Count 329 (150-400) K/uL Neut % (Auto) 91 H (36-66) % Lymph % (Auto) 2 L (24-44) % Grand % (Auto) 7 H (2-6) % Eos % (Auto) 1 L (2-4) % Baso % (Auto) 0 (0-1) % Sodium 139 L (140-148) mmol/L Potassium 3.5 L (3.6-5.2) mmol/L Chloride 104 (100-108) mmol/L Carbon Dioxide 24 (21-32) mmol/L Anion Gap 14.5 H (5.0-14.0) mmol/L BUN 17 D (7-18) mg/dL Creatinine 1.0 (0.6-1.0) mg/dL Est Cr Clr Drug Dosing 51.81 mL/min Estimated GFR (MDRD) 56 L (>60) Glucose 105 (74-106) mg/dL Lactic Acid 2.2 H (0.4-2.0) mmol/L Calcium 9.6 (8.5-10.1) mg/dL Magnesium (1.8-2.4) mg/dL Total Bilirubin 0.3 (0.2-1.0) mg/dL AST 26 (15-37) U/L ALT 37 (12-78) U/L Alkaline Phosphatase 114 (46-116) U/L C-Reactive Protein (0.0-0.3) mg/dL Total Protein 7.9 (6.4-8.2) g/dL Albumin 3.9 (3.4-5.0) g/dL Globulin 4.0 H (2.3-3.5) g/dL Albumin/Globulin Ratio 1.0 L (1.2-2.2) Procalcitonin ng/mL Urine Color (YELLOW) Urine Appearance (CLEAR) Urine pH (5.0-8.0) Ur Specific [place] (1.008-1.030) Urine Protein (NEGATIVE) mg/dL Urine Glucose (UA) (NEGATIVE) mg/dL Urine Ketones (NEGATIVE) mg/dL Urine Occult Blood (NEGATIVE) Urine Nitrite (NEGATIVE) Urine Bilirubin (NEGATIVE) Urine Urobilinogen (0.2-1.0) EU/dL Ur Leukocyte Esterase (NEGATIVE) Urine RBC (0-5) Urine WBC (0-5) Ur Epithelial Cells Amorphous Sediment Urine Bacteria Urine Mucus Urine Other 04/18/19 04/18/19 04/18/19 Range/Units 18:52 19:29 19:35 WBC (4.5-11.0) K/uL RBC (3.30-5.50) M/uL Hgb (12.0-15.0) g/dL Hct (36.0-48.0) % MCV (80-98) fL MCH (27-31) pg MCHC (32-36) % Plt Count (150-400) K/uL Neut % (Auto) (36-66) % Lymph % (Auto) (24-44) % Grand % (Auto) (2-6) % Eos % (Auto) (2-4) % Baso % (Auto) (0-1) % Sodium (140-148) mmol/L Potassium (3.6-5.2) mmol/L Chloride (100-108) mmol/L Carbon Dioxide (21-32) mmol/L Anion Gap (5.0-14.0) mmol/L BUN (7-18) mg/dL Creatinine (0.6-1.0) mg/dL Est Cr Clr Drug Dosing mL/min Estimated GFR (MDRD) (>60) Glucose (74-106) mg/dL Lactic Acid (0.4-2.0) mmol/L Calcium (8.5-10.1) mg/dL Magnesium 1.8 (1.8-2.4) mg/dL Total Bilirubin (0.2-1.0) mg/dL AST (15-37) U/L ALT (12-78) U/L Alkaline Phosphatase (46-116) U/L C-Reactive Protein 1.10 H (0.0-0.3) mg/dL Total Protein (6.4-8.2) g/dL Albumin (3.4-5.0) g/dL Globulin (2.3-3.5) g/dL Albumin/Globulin Ratio (1.2-2.2) Procalcitonin < 0.05 ng/mL Urine Color (YELLOW) Urine Appearance (CLEAR) Urine pH (5.0-8.0) Ur Specific [place] (1.008-1.030) Urine Protein (NEGATIVE) mg/dL Urine Glucose (UA) (NEGATIVE) mg/dL Urine Ketones (NEGATIVE) mg/dL Urine Occult Blood (NEGATIVE) Urine Nitrite (NEGATIVE) Urine Bilirubin (NEGATIVE) Urine Urobilinogen (0.2-1.0) EU/dL Ur Leukocyte Esterase (NEGATIVE) Urine RBC (0-5) Urine WBC (0-5) Ur Epithelial Cells Amorphous Sediment Urine Bacteria Urine Mucus Urine Other 04/18/19 04/19/19 04/19/19 Range/Units 22:00 04:38 04:38 WBC 14.5 H (4.5-11.0) K/uL RBC 3.76 (3.30-5.50) M/uL Hgb 11.8 L D (12.0-15.0) g/dL Hct 37.0 (36.0-48.0) % MCV 98 (80-98) fL MCH 31 (27-31) pg MCHC 32 (32-36) % Plt Count 263 (150-400) K/uL Neut % (Auto) 78 H (36-66) % Lymph % (Auto) 13 L (24-44) % Grand % (Auto) 7 H (2-6) % Eos % (Auto) 3 (2-4) % Baso % (Auto) 0 (0-1) % Sodium 142 (140-148) mmol/L Potassium 3.4 L (3.6-5.2) mmol/L Chloride 109 H (100-108) mmol/L Carbon Dioxide 25 (21-32) mmol/L Anion Gap 11.4 (5.0-14.0) mmol/L BUN 15 (7-18) mg/dL Creatinine 0.9 (0.6-1.0) mg/dL Est Cr Clr Drug Dosing 57.57 mL/min Estimated GFR (MDRD) > 60 (>60) Glucose 91 (74-106) mg/dL Lactic Acid (0.4-2.0) mmol/L Calcium 7.9 L D (8.5-10.1) mg/dL Magnesium (1.8-2.4) mg/dL Total Bilirubin (0.2-1.0) mg/dL AST (15-37) U/L ALT (12-78) U/L Alkaline Phosphatase (46-116) U/L C-Reactive Protein (0.0-0.3) mg/dL Total Protein (6.4-8.2) g/dL Albumin (3.4-5.0) g/dL Globulin (2.3-3.5) g/dL Albumin/Globulin Ratio (1.2-2.2) Procalcitonin ng/mL Urine Color Yellow (YELLOW) Urine Appearance Slightly cloudy A (CLEAR) Urine pH 5.5 (5.0-8.0) Ur Specific [place] 1.020 (1.008-1.030) Urine Protein Negative (NEGATIVE) mg/dL Urine Glucose (UA) Negative (NEGATIVE) mg/dL Urine Ketones Negative (NEGATIVE) mg/dL Urine Occult Blood Negative (NEGATIVE) Urine Nitrite Negative (NEGATIVE) Urine Bilirubin Negative (NEGATIVE) Urine Urobilinogen 0.2 (0.2-1.0) EU/dL Ur Leukocyte Esterase Negative (NEGATIVE) Urine RBC 0-5 (0-5) Urine WBC 0-5 (0-5) Ur Epithelial Cells Few Amorphous Sediment Moderate Urine Bacteria Few Urine Mucus Not seen Urine Other Nate Results Last 24 Hours: Microbiology 04/18/19 20:16 Clostridioides difficile (PCR) - Final Stool / Feces NEGATIVE CDIFF TOXIN Med Orders - Current: Current Medications Acetaminophen (Tylenol) 650 mg PO Q4H PRN PRN Reason: Headache/Pain Last Admin: 04/19/19 17:51 Dose: 650 mg Apixaban (Eliquis) 5 mg PO BID [facility] Last Admin: 04/19/19 08:46 Dose: 5 mg Digoxin (Lanoxin) 125 mcg PO DAILY@1300 [facility] Last Admin: 04/19/19 17:51 Dose: 125 mcg Diltiazem HCl (Cardizem Cd) 240 mg PO DAILY [facility] Last Admin: 04/19/19 08:41 Dose: 240 mg Diltiazem HCl (Cardizem Cd) 180 mg PO BEDTIME [facility] Sodium Chloride (Normal Saline) 1,000 mls @ 125 mls/hr IV ASDIRECTED [facility] Last Admin: 04/19/19 05:42 Dose: 125 mls/hr Ceftriaxone Sodium 1 gm/ (Sodium Chloride) 50 mls @ 100 mls/hr IV Q24H [facility] Last Admin: 04/18/19 22:48 Dose: 100 mls/hr Influenza Virus Vaccine (Fluzone Quad 6161-6515 Syringe) 60 mcg IM .ONCE ONE Stop: 04/20/19 10:01 Ondansetron HCl (Zofran) 4 mg IVPUSH Q4H PRN PRN Reason: Nausea/Vomiting Rosuvastatin Calcium (Crestor) 10 mg PO BEDTIME [facility] Sodium Chloride (Saline Flush) 10 ml FLUSH ASDIRECTED PRN PRN Reason: Keep Vein Open Last Admin: 04/18/19 19:02 Dose: 10 ml Discontinued Medications Hydromorphone HCl (Dilaudid) 0.5 mg IVPUSH ONETIME ONE Stop: 04/18/19 18:18 Last Admin: 04/18/19 19:04 Dose: 0.5 mg Sodium Chloride (Normal Saline) 1,000 mls @ 999 mls/hr IV .BOLUS ONE Stop: 04/18/19 19:17 Last Admin: 04/18/19 19:01 Dose: 999 mls/hr Sodium Chloride (Normal Saline) 1,000 mls @ 999 mls/hr IV .BOLUS ONE Stop: 04/18/19 20:15 Last Admin: 04/18/19 20:20 Dose: 999 mls/hr Piperacillin Sod/Tazobactam (Sod 4.5 gm/ Sodium Chloride) 100 mls @ 100 mls/hr IV ONETIME ONE Stop: 04/18/19 20:24 Last Admin: 04/18/19 19:45 Dose: 100 mls/hr Sodium Chloride (Normal Saline) 79 mls @ 3.5 mls/sec IV ASDIRECTED ALEC Stop: 04/19/19 13:46 Iopamidol (Isovue-300 (61%)) 124 ml IV . DIRECTED PRN PRN Reason: RADIOLOGY EXAM Stop: 04/19/19 14:00 Non-Formulary Medication (Ondansetron [Ondansetron]) 1 tab PO ASDIRECTED [facility] Ondansetron HCl (Zofran) 4 mg IVPUSH ONETIME ONE Stop: 04/18/19 18:18 Last Admin: 04/18/19 19:00 Dose: 4 mg Sodium Chloride (Saline Flush) 10 ml FLUSH TID ALEC Stop: 04/19/19 14:01 Last Admin: 04/19/19 13:42 Dose: 10 ml - Exam General: Alert, Oriented HEENT: Pupils Equal, Pupils Reactive, EOMI, Mucous Membr. Moist/[place] Neck: Supple Lungs: Clear to Auscultation, Normal Respiratory Effort Cardiovascular: Regular Rate, Regular Rhythm GI/Abdominal Exam: Normal Bowel Sounds, Soft, Tender Back Exam: Muscle Spasm Extremities: Normal Inspection, Normal Range of Motion, Non-Tender, No Pedal Edema, Normal Capillary Refill Peripheral Pulses: 1+: Radial (L), Radial (R) Skin: Warm, Dry, Intact Neurological: No New Focal Deficit Psy/Mental Status: Alert, Normal Affect, Normal Mood - Problem List Review Problem List Initiated/Reviewed/Updated: Yes - My Orders Last 24 Hours: My Active Orders 04/18/19 20:54 Patient Status [ADT] Routine Bedrest Bathroom Privileges [RC] ASDIRECTED May Shower [RC] ASDIRECTED Oxygen Therapy [RC] .PRN Up to Chair [RC] QID Vital Signs [RC] Q4H Resuscitation Status Routine 04/18/19 20:57 Sequential Compression Device [OM.PC] Per Unit Routine 04/18/19 21:00 Sodium Chloride 0.9% [Normal Saline] 1,000 ml IV ASDIRECTED cefTRIAXone [Rocephin] 1 gm Sodium Chloride 0.9% [Normal Saline] 50 ml IV Q24H 04/18/19 22:32 Acetaminophen [Tylenol] 650 mg PO Q4H PRN 04/18/19 22:33 Ondansetron [Zofran] 4 mg IVPUSH Q4H PRN 04/18/19 23:11 Influenza Vaccine Charge [RC] .DISCHARGE 04/19/19 08:55 CULTURE URINE [RM] Routine 04/19/19 09:00 Apixaban [Eliquis] 5 mg PO BID Diltiazem [Cardizem CD] 240 mg PO DAILY 04/19/19 13:00 Digoxin [Lanoxin] 125 mcg PO DAILY@1300 04/19/19 17:17 CULTURE STOOL + SHIGATOX [RM] Routine WBC, STOOL [OP] Routine 04/19/19 17:18 GIARDIA LAMBLIA AG, EIA Routine 04/19/19 17:19 Urogram [CT] Routine 04/19/19 17:21 Consult to Physical Therapy [PT Evaluation and Treatment] [CONS] Routine 04/19/19 17:22 Lumbar Spine 2 or 3V [CR] Routine Thoracic Spine 3V [CR] Routine 04/19/19 21:00 Diltiazem [Cardizem CD] 180 mg PO BEDTIME Rosuvastatin [Crestor] 10 mg PO BEDTIME 04/19/19 Lunch Regular Diet [DIET] 04/20/19 10:00 FLU Vacc [id number](6MOS+)/PF [Fluzone Quad Syringe] 60 mcg IM .ONCE ONE - Plan Plan:: Assessment/Plan: #1. Back and abd pain. CT of the abd. showed lymph nodes in the mesentery. No other pathology evident. She continues to have diarrhea yellow in color. Back pain still present. I have ordered a CT urogram to get a better look at the left kidney. The ultrasound was neg. #2. Recent UTI treated Her WBC has dropped to 14,000 from 28,000. Will continue with Rocephin. HTN: Blood pressure is good control will continue with meds. for BP #4. HLD: Will continue with Rosuvastatin #5. Diarrhea: Have scheduled her for a colonoscopy. Other stool tests are pending. C dif is neg.
[2019-04-19] MEDS ORDERED: Polyethylene Glycol 3350 Powder 238 GM Bot PO ONE (18:23)
[2019-04-19] MEDS ORDERED: Bisacodyl 5 MG Tab PO ONE (18:23)
[2019-04-19] MEDS ORDERED: Bisacodyl 5 MG Tab PO PRN (18:25)
[2019-04-19] MEDS: cefTRIAXone 1 GM in Sodium Chloride 0.9% 50 ML IV SCH (20:44)
[2019-04-19] MEDS ORDERED: Rosuvastatin 10 MG Tab PO SCH (21:00)
[2019-04-19] MEDS ORDERED: Diltiazem 180 MG Cap.CD PO SCH ×2 (21:00)
[2019-04-20] MEDS: Sodium Chloride 0.9% 1,000 ML IV SCH (00:38)
[2019-04-20] MEDS ORDERED: Iopamidol 612 MG/ML 150 ML Bottle IV STA (05:21)
--- NOTE | 2019-04-20 06:22 | CRLCT ---
INDICATION : LEFT KIDNEY PAIN T-L SPINE PAIN SR WOULD LIKE RAD RO LOOK AT SPINE ALSO TECHNIQUE : CT scan of the abdomen and pelvis. IV CONTRAST 124 cc IV contrast COMPARISON: No comparison FINDINGS : Lung bases: Patchy opacity atelectasis. Bibasilar areas of linear Liver: No suspicious mass. Gallbladder: Contracted. No calcified stones. Spleen: Normal size. Pancreas: No suspicious mass or ductal dilatation. Adrenal glands: No suspicious mass. Kidneys: No mass lesion or hydronephrosis. Normal size and position. Bladder: No suspicious mass or abnormal wall thickening. GI tract: No abnormal wall thickening or dilatation. No mesenteric abnormality. Fluid is present in the right colon. No significant wall thickening. Appendix is not visualized. Correlate with history of previous surgical appendectomy. Retroperitoneum: No adenopathy. No suspicious mass. Aorta and vessels: No aneurysmal dilatation. Pelvis: No mass, free fluid or adenopathy.Uterus is absent Skeletal structures: No suspicious skeletal lesions.The thoracic and lumbar visualized vertebral bodies appear normal. Disc spaces are unremarkable. No paraspinal mass or other significant abnormality. IMPRESSION : 1. Linear areas of bibasilar opacity in the lungs nonspecific favor atelectasis. 2. No significant visualized abnormality of the included thoracic or lumbar spine. 3. No signs of hydronephrosis or urinary calculus. 4. Nonspecific fluid in the right colon. 5. Contracted gallbladder but no calcified stones. Please note that all CT scans at this facility use dose modulation, iterative reconstruction, and/or weight-based dosing when appropriate to reduce radiation dose to as low as reasonably achievable. Dictated by Jonas Rios MD @ Apr 20 2019 6:20AM Signed by Dr. Jonas Rios @ Apr 20 2019 6:20AM
[2019-04-20] MEDS ORDERED: Midazolam 1 MG/ML 2 ML SDV ONE (07:06)
[2019-04-20] MEDS ORDERED: fentaNYL 100 MCG/2 ML SDV ONE (07:06)
[2019-04-20] MEDS ORDERED: Propofol 200 MG/20 ML SDV ONE (07:06)
[2019-04-20] MEDS: Diltiazem 120 MG Cap.CD PO SCH (08:44)
[2019-04-20 08:45] VITALS: BP 116/58; PULSE 61
[2019-04-20] MEDS: Apixaban 5 MG Tab PO SCH ×2 (08:45→10:43)
--- NOTE | 2019-04-20 09:13 | PCM.PN ---
- General Info Date of Service: 04/20/19 Functional Status: Reports: Pain Controlled - Review of Systems General: Reports: Weakness, Fatigue HEENT: Reports: No Symptoms Pulmonary: Reports: No Symptoms Cardiovascular: Reports: No Symptoms Gastrointestinal: Reports: Other (Abd. and pelvic pain) Genitourinary: Reports: No Symptoms Musculoskeletal: Reports: No Symptoms Skin: Reports: No Symptoms Neurological: Reports: No Symptoms Psychiatric: Reports: No Symptoms - Patient Data Vitals - Most Recent: Last Vital Signs Temp 98.6 F 04/20/19 08:00 Pulse 61 04/20/19 08:44 Resp 18 04/20/19 08:00 BP 116/58 L 04/20/19 08:44 Pulse Ox 97 04/20/19 08:00 Weight - Most Recent: 184 lb I&O - Last 24 Hours: Intake & Output 04/19/19 04/20/19 04/20/19 22:59 06:59 14:59 Intake Total 50 2227 Balance 50 2227 Nate Results Last 24 Hours: Microbiology 04/19/19 08:55 Urine Culture - Preliminary Urine, Clean Catch NO GROWTH AFTER 1 DAY 04/18/19 19:25 Aerobic Blood Culture - Preliminary Blood - Arm, Right NO GROWTH AFTER 1 DAY Anaerobic Blood Culture - Preliminary NO GROWTH AFTER 1 DAY 04/18/19 19:30 Aerobic Blood Culture - Preliminary Blood - Arm, Right NO GROWTH AFTER 1 DAY Anaerobic Blood Culture - Preliminary NO GROWTH AFTER 1 DAY 04/19/19 18:32 Stool for WBCs - Final Stool / Feces NO WBC SEEN REFERENCE RANGE: NO WBC SEEN Med Orders - Current: Current Medications Acetaminophen (Tylenol) 650 mg PO Q4H PRN PRN Reason: Headache/Pain Last Admin: 04/19/19 17:51 Dose: 650 mg Apixaban (Eliquis) 5 mg PO BID [facility] Last Admin: 04/20/19 08:45 Dose: Not Given Bisacodyl (Dulcolax) 10 mg PO ASDIRECTED PRN PRN Reason: colonoscopy Last Admin: 04/19/19 22:02 Dose: 10 mg Digoxin (Lanoxin) 125 mcg PO DAILY@1300 [facility] Last Admin: 04/19/19 17:51 Dose: 125 mcg Diltiazem HCl (Cardizem Cd) 240 mg PO DAILY [facility] Last Admin: 04/20/19 08:44 Dose: 240 mg Diltiazem HCl (Cardizem Cd) 180 mg PO BEDTIME [facility] Last Admin: 04/19/19 20:44 Dose: 180 mg Sodium Chloride (Normal Saline) 1,000 mls @ 125 mls/hr IV ASDIRECTED [facility] Last Admin: 04/20/19 00:38 Dose: 125 mls/hr Ceftriaxone Sodium 1 gm/ (Sodium Chloride) 50 mls @ 100 mls/hr IV Q24H [facility] Last Admin: 04/19/19 20:44 Dose: 100 mls/hr Influenza Virus Vaccine (Fluzone Quad 3485-5867 Syringe) 60 mcg IM .ONCE ONE Stop: 04/20/19 10:01 Ondansetron HCl (Zofran) 4 mg IVPUSH Q4H PRN PRN Reason: Nausea/Vomiting Last Admin: 04/19/19 19:41 Dose: 4 mg Rosuvastatin Calcium (Crestor) 10 mg PO BEDTIME [facility] Last Admin: 04/19/19 20:44 Dose: 10 mg Sodium Chloride (Saline Flush) 10 ml FLUSH ASDIRECTED PRN PRN Reason: Keep Vein Open Last Admin: 04/18/19 19:02 Dose: 10 ml Discontinued Medications Bisacodyl (Dulcolax) 10 mg PO ONETIME ONE Stop: 04/19/19 18:24 Last Admin: 04/19/19 18:42 Dose: 10 mg Fentanyl (Sublimaze) Confirm Administered Dose 100 mcg .ROUTE .STK-MED ONE Stop: 04/20/19 07:07 Hydromorphone HCl (Dilaudid) 0.5 mg IVPUSH ONETIME ONE Stop: 04/18/19 18:18 Last Admin: 04/18/19 19:04 Dose: 0.5 mg Sodium Chloride (Normal Saline) 1,000 mls @ 999 mls/hr IV .BOLUS ONE Stop: 04/18/19 19:17 Last Admin: 04/18/19 19:01 Dose: 999 mls/hr Sodium Chloride (Normal Saline) 1,000 mls @ 999 mls/hr IV .BOLUS ONE Stop: 04/18/19 20:15 Last Admin: 04/18/19 20:20 Dose: 999 mls/hr Piperacillin Sod/Tazobactam (Sod 4.5 gm/ Sodium Chloride) 100 mls @ 100 mls/hr IV ONETIME ONE Stop: 04/18/19 20:24 Last Admin: 04/18/19 19:45 Dose: 100 mls/hr Sodium Chloride (Normal Saline) 79 mls @ 3.5 mls/sec IV ASDIRECTED [facility] Stop: 04/19/19 13:46 Sodium Chloride (Normal Saline) 78 mls @ 3.2 mls/sec IV ASDIRECTED [facility] Stop: 04/20/19 05:22 Last Admin: 04/20/19 05:35 Dose: 3.2 mls/sec Iopamidol (Isovue-300 (61%)) 124 ml IV . DIRECTED PRN PRN Reason: RADIOLOGY EXAM Stop: 04/19/19 14:00 Iopamidol (Isovue-300 (61%)) 124 ml IV . DIRECTED [facility] Stop: 04/20/19 05:22 Last Admin: 04/20/19 05:35 Dose: 124 ml Midazolam HCl (Versed 1 Mg/Ml) Confirm Administered Dose 2 mg .ROUTE .STK-MED ONE Stop: 04/20/19 07:07 Non-Formulary Medication (Ondansetron [Ondansetron]) 1 tab PO ASDIRECTED [facility] Ondansetron HCl (Zofran) 4 mg IVPUSH ONETIME ONE Stop: 04/18/19 18:18 Last Admin: 04/18/19 19:00 Dose: 4 mg Polyethylene Glycol (Miralax) 238 gm PO ONETIME ONE Stop: 04/19/19 18:24 Last Admin: 04/19/19 18:42 Dose: 238 gram Propofol (Diprivan 20 Ml) Confirm Administered Dose 200 mg .ROUTE .STK-MED ONE Stop: 04/20/19 07:07 Sodium Chloride (Saline Flush) 10 ml FLUSH TID [facility] Stop: 04/19/19 14:01 Last Admin: 04/19/19 13:42 Dose: 10 ml - Exam General: Alert, Oriented HEENT: Pupils Equal, Pupils Reactive, EOMI, Mucous Membr. Moist/[place] Neck: Supple Lungs: Clear to Auscultation, Normal Respiratory Effort Cardiovascular: Regular Rate, Regular Rhythm Back Exam: Normal Inspection, Full Range of Motion Extremities: Normal Inspection, Normal Range of Motion, Non-Tender, No Pedal Edema, Normal Capillary Refill Peripheral Pulses: 1+: Radial (L), Radial (R) Skin: Warm, Dry, Intact Psy/Mental Status: Alert, Normal Affect, Normal Mood - Problem List Review Problem List Initiated/Reviewed/Updated: Yes - My Orders Last 24 Hours: My Active Orders 04/19/19 08:55 CULTURE URINE [RM] Routine 04/19/19 09:00 Apixaban [Eliquis] 5 mg PO BID Diltiazem [Cardizem CD] 240 mg PO DAILY 04/19/19 13:00 Digoxin [Lanoxin] 125 mcg PO DAILY@1300 04/19/19 17:21 Consult to Physical Therapy [PT Evaluation and Treatment] [CONS] Routine 04/19/19 18:25 Bisacodyl [Dulcolax] 10 mg PO ASDIRECTED PRN 04/19/19 18:32 CULTURE STOOL + SHIGATOX [RM] Routine GIARDIA LAMBLIA AG, EIA Routine 04/19/19 21:00 Diltiazem [Cardizem CD] 180 mg PO BEDTIME Rosuvastatin [Crestor] 10 mg PO BEDTIME 04/19/19 Lunch Regular Diet [DIET] 04/20/19 09:02 BASIC METABOLIC PANEL,BMP [CHEM] Routine CBC WITH AUTO DIFF [HEME] Routine 04/20/19 10:00 FLU Vacc [id number](6MOS+)/PF [Fluzone Quad [id number] Syringe] 60 mcg IM .ONCE ONE - Plan Plan:: Assessment/Plan: #1. Back and abd pain. CT of the abd. showed lymph nodes in the mesentery. CT done this morning with contrast showed no acute pathology. The colonoscopy was negative as well. No pathology evident. Back pain is gone. Abd ultrasound is negative. #2. Recent UTI treated Her WBC has dropped to 14,000 from 28,000. CBC is pending now. Will continue with Rocephin today and discharge home on Keflex. HTN: Blood pressure is good control will continue with meds. for BP #4. HLD: Will continue with Rosuvastatin #5. Diarrhea: Had a neg. colonoscopy Home today.
--- NOTE | 2019-04-20 09:30 | PCM.DCSUM1 ---
Discharge Summary - Hospital Course Brief History: Admitted with fever and chills and a WBC of 28,000. She was also having abd. pain and back pain. She did have a history of a UTI had been on Cipro for a ducumentated infuction of the urinary tract. - Discharge Data Discharge Date: 04/20/19 Discharge Disposition: Home, Self-Care 01 Condition: Stable - Referral to Home Health Primary Care Physician: Matteo Johnson Sr, MD - Patient Summary/Data Consults: Consultations 04/19/19 17:21 Consult to Physical Therapy [PT Evaluation and Treatment] [CONS] Routine Please Evaluate and Treat. PT Reason for Consult: left lower back pain This query below is only for informational purposes and is not editable. Admission Diagnosis/Problem: Sepsis Hospital Course: She had diarrhea in entire time while hospitalized. The WBC dropped. BP was good control. CT of the abd. showed a fatty liver as did the ultrasound of the abd. The colonoscopy was normal. C. Diff was neg. She had Rocephin while in the hospital. - Discharge Plan Home Medications: Home Meds Digoxin [Lanoxin] 125 mcg PO DAILY #30 tablet 07/30/17 [Rx] Diltiazem HCl [Cartia Xt] 1 tab PO BIDAC #0 07/30/17 [Rx] Rosuvastatin [Crestor] 10 mg PO BEDTIME tablet 07/30/17 [Rx] Apixaban [Eliquis] 5 mg PO BID 04/18/19 [History] Forms: ED Department Discharge Referrals: Matteo Johnson Sr, MD [Primary Care Provider] - - Discharge Summary/Plan Comment DC Time >30 min.: Yes Discharge Summary/Plan Comment: Assessment/Plan: #1. Back and abd pain. CT of the abd. showed lymph nodes in the mesentery. CT done this morning with contrast showed no acute pathology. The colonoscopy was negative as well. No pathology evident. Back pain is gone. Abd ultrasound is negative. #2. Recent UTI treated Her WBC has dropped to 14,000 from 28,000. CBC is pending now. Will continue with Rocephin today and discharge home on Keflex. HTN: Blood pressure is good control will continue with meds. for BP #4. HLD: Will continue with Rosuvastatin #5. Diarrhea: Had a neg. colonoscopy Home today. - General Info Date of Service: 04/20/19 Functional Status: Reports: Pain Controlled - Review of Systems General: Reports: Weakness, Fatigue HEENT: Reports: No Symptoms Pulmonary: Reports: No Symptoms Cardiovascular: Reports: No Symptoms Gastrointestinal: Reports: Abdominal Pain Genitourinary: Reports: No Symptoms Musculoskeletal: Reports: No Symptoms Skin: Reports: No Symptoms Neurological: Reports: No Symptoms Psychiatric: Reports: No Symptoms - Patient Data Vitals - Most Recent: Last Vital Signs Temp 98.6 F 04/20/19 08:00 Pulse 61 04/20/19 08:44 Resp 18 04/20/19 08:00 BP 116/58 L 04/20/19 08:44 Pulse Ox 97 04/20/19 08:00 Weight - Most Recent: 184 lb I&O - Last 24 hours: Intake & Output 04/19/19 04/20/19 04/20/19 22:59 06:59 14:59 Intake Total 50 2227 Balance 50 2227 Lab Results - Last 24 hrs: Laboratory Results - last 24 hr 04/20/19 Range/Units 09:11 WBC 11.9 H (4.5-11.0) K/uL RBC 3.76 (3.30-5.50) M/uL Hgb 11.8 L (12.0-15.0) g/dL Hct 37.4 (36.0-48.0) % MCV 100 H (80-98) fL MCH 31 (27-31) pg MCHC 32 (32-36) % Plt Count 250 (150-400) K/uL Neut % (Auto) 78 H (36-66) % Lymph % (Auto) 12 L (24-44) % [place] % (Auto) 7 H (2-6) % Eos % (Auto) 3 (2-4) % Baso % (Auto) 0 (0-1) % CECI Results - Last 24 hrs: Microbiology 04/19/19 08:55 Urine Culture - Preliminary Urine, Clean Catch NO GROWTH AFTER 1 DAY 04/18/19 19:25 Aerobic Blood Culture - Preliminary Blood - Arm, Right NO GROWTH AFTER 1 DAY Anaerobic Blood Culture - Preliminary NO GROWTH AFTER 1 DAY 04/18/19 19:30 Aerobic Blood Culture - Preliminary Blood - Arm, Right NO GROWTH AFTER 1 DAY Anaerobic Blood Culture - Preliminary NO GROWTH AFTER 1 DAY 04/19/19 18:32 Stool for WBCs - Final Stool / Feces NO WBC SEEN REFERENCE RANGE: NO WBC SEEN Med Orders - Current: Current Medications Acetaminophen (Tylenol) 650 mg PO Q4H PRN PRN Reason: Headache/Pain Last Admin: 04/19/19 17:51 Dose: 650 mg Apixaban (Eliquis) 5 mg PO BID [facility] Last Admin: 04/20/19 08:45 Dose: Not Given Bisacodyl (Dulcolax) 10 mg PO ASDIRECTED PRN PRN Reason: colonoscopy Last Admin: 04/19/19 22:02 Dose: 10 mg Digoxin (Lanoxin) 125 mcg PO DAILY@1300 [facility] Last Admin: 04/19/19 17:51 Dose: 125 mcg Diltiazem HCl (Cardizem Cd) 240 mg PO DAILY [facility] Last Admin: 04/20/19 08:44 Dose: 240 mg Diltiazem HCl (Cardizem Cd) 180 mg PO BEDTIME [facility] Last Admin: 04/19/19 20:44 Dose: 180 mg Sodium Chloride (Normal Saline) 1,000 mls @ 125 mls/hr IV ASDIRECTED [facility] Last Admin: 04/20/19 00:38 Dose: 125 mls/hr Ceftriaxone Sodium 1 gm/ (Sodium Chloride) 50 mls @ 100 mls/hr IV Q24H [facility] Last Admin: 04/19/19 20:44 Dose: 100 mls/hr Influenza Virus Vaccine (Fluzone Quad [id number] Syringe) 60 mcg IM .ONCE ONE Stop: 04/20/19 10:01 Ondansetron HCl (Zofran) 4 mg IVPUSH Q4H PRN PRN Reason: Nausea/Vomiting Last Admin: 04/19/19 19:41 Dose: 4 mg Rosuvastatin Calcium (Crestor) 10 mg PO BEDTIME [facility] Last Admin: 04/19/19 20:44 Dose: 10 mg Sodium Chloride (Saline Flush) 10 ml FLUSH ASDIRECTED PRN PRN Reason: Keep Vein Open Last Admin: 04/18/19 19:02 Dose: 10 ml Discontinued Medications Bisacodyl (Dulcolax) 10 mg PO ONETIME ONE Stop: 04/19/19 18:24 Last Admin: 04/19/19 18:42 Dose: 10 mg Fentanyl (Sublimaze) Confirm Administered Dose 100 mcg .ROUTE .STK-MED ONE Stop: 04/20/19 07:07 Hydromorphone HCl (Dilaudid) 0.5 mg IVPUSH ONETIME ONE Stop: 04/18/19 18:18 Last Admin: 04/18/19 19:04 Dose: 0.5 mg Sodium Chloride (Normal Saline) 1,000 mls @ 999 mls/hr IV .BOLUS ONE Stop: 04/18/19 19:17 Last Admin: 04/18/19 19:01 Dose: 999 mls/hr Sodium Chloride (Normal Saline) 1,000 mls @ 999 mls/hr IV .BOLUS ONE Stop: 04/18/19 20:15 Last Admin: 04/18/19 20:20 Dose: 999 mls/hr Piperacillin Sod/Tazobactam (Sod 4.5 gm/ Sodium Chloride) 100 mls @ 100 mls/hr IV ONETIME ONE Stop: 04/18/19 20:24 Last Admin: 04/18/19 19:45 Dose: 100 mls/hr Sodium Chloride (Normal Saline) 79 mls @ 3.5 mls/sec IV ASDIRECTED [facility] Stop: 04/19/19 13:46 Sodium Chloride (Normal Saline) 78 mls @ 3.2 mls/sec IV ASDIRECTED [facility] Stop: 04/20/19 05:22 Last Admin: 04/20/19 05:35 Dose: 3.2 mls/sec Iopamidol (Isovue-300 (61%)) 124 ml IV . DIRECTED PRN PRN Reason: RADIOLOGY EXAM Stop: 04/19/19 14:00 Iopamidol (Isovue-300 (61%)) 124 ml IV . DIRECTED [facility] Stop: 04/20/19 05:22 Last Admin: 04/20/19 05:35 Dose: 124 ml Midazolam HCl (Versed 1 Mg/Ml) Confirm Administered Dose 2 mg .ROUTE .STK-MED ONE Stop: 04/20/19 07:07 Non-Formulary Medication (Ondansetron [Ondansetron]) 1 tab PO ASDIRECTED [facility] Ondansetron HCl (Zofran) 4 mg IVPUSH ONETIME ONE Stop: 04/18/19 18:18 Last Admin: 04/18/19 19:00 Dose: 4 mg Polyethylene Glycol (Miralax) 238 gm PO ONETIME ONE Stop: 04/19/19 18:24 Last Admin: 04/19/19 18:42 Dose: 238 gram Propofol (Diprivan 20 Ml) Confirm Administered Dose 200 mg .ROUTE .STK-MED ONE Stop: 04/20/19 07:07 Sodium Chloride (Saline Flush) 10 ml FLUSH TID [facility] Stop: 04/19/19 14:01 Last Admin: 04/19/19 13:42 Dose: 10 ml - Exam General: Reports: Alert, Oriented HEENT: Reports: Pupils Equal, Pupils Reactive, EOMI, Mucous Membr. Moist/[place] Neck: Reports: Supple Lungs: Reports: Clear to Auscultation, Normal Respiratory Effort Cardiovascular: Reports: Regular Rate, Regular Rhythm GI/Abdominal Exam: Normal Bowel Sounds, Soft, Non-Tender, No Organomegaly, No Distention, No Abnormal Bruit, No Mass, Pelvis Stable Back Exam: Reports: Normal Inspection, Full Range of Motion Extremities: Normal Inspection, Normal Range of Motion, Non-Tender, No Pedal Edema, Normal Capillary Refill Skin: Reports: Warm, Dry, Intact Neurological: Reports: No New Focal Deficit Psy/Mental Status: Reports: Alert, Normal Affect, Normal Mood
[2019-04-20] MEDS ORDERED: FLU Vacc QS2019-20(6MOS+)/PF 60 MCG/0.5 ML SYRINGE IM ONE (10:00)
[2019-04-20] MEDS ORDERED: cefTRIAXone 1 GM in Sodium Chloride 0.9% 50 ML IV ONE (10:00)
--- NOTE | 2019-04-21 08:25 | PROC ---
DATE OF PROCEDURE: 04/20/2019 SURGEON: Matteo Johnson MD PROCEDURE: This patient is a 62-year-old female, who comes in because of diarrhea and abdominal pain. She was found to have lymph nodes in the mesentery, and with the diarrhea, colonoscopy was indicated. The risks and benefits were explained, and the patient was taken to the OR. Anesthesia was given by nurse machine crater. During the procedure, we used 2 mg of Versed, 100 mcg of fentanyl, and 200 mg of propofol. The Olympus 180AL scope was used and was placed into the rectum, after examination of rectum with a gloved finger, which was unremarkable. We then took the tube and placed into the rectum and advanced under direct vision. We had a difficult time getting through the first 20 cm and then there was a small amount of feces noted at the splenic flexure. We did advance and did get to the cecum. Picture was taken of the cecum. Upon retraction of the tube, noted no lesions or ulceration, no abnormalities throughout the entire colon, essentially normal. The tube was removed. The patient tolerated the procedure well. PREOPERATIVE DAIGNOSIS: Abdominal pain with diarrhea. POSTOPERATIVE DIAGNOSIS: Normal colon from cecum to rectum. This does not explain her diarrhea or the abdominal pain. Matteo Johnson MD /[id number]
== END 2019-04-20 11:10 | disposition home or self-care (01) | DRG 690 ==
LOC: JP.ED 17:39 → JP.MS 20:54
PROVIDERS: ADMIT Internal Medicine; ATTEND Internal Medicine
PROC: 0DJD8ZZ Inspection of Lower Intestinal Tract, Via Natural or Artificial Opening Endoscopic (ICD-10-PCS; principal; 2019-04-20)
DX: N39.0 Urinary tract infection, site not specified (principal); E78.5 Hyperlipidemia, unspecified; R19.7 Diarrhea, unspecified; E78.00 Pure hypercholesterolemia, unspecified; I10 Essential (primary) hypertension; Z86.718 Personal history of other venous thrombosis and embolism; Z88.2 Allergy status to sulfonamides; Z79.899 Other long term (current) drug therapy; Z90.710 Acquired absence of both cervix and uterus
CPT/HCPCS: 36415; 71046; 74176; 74176-26; 74177; 76700; 80048; 80053; 81001; 83605; 83735; 84145; 85025; 86140; 87040; 87046; 87086; 87329; 87493; 87899; 89055; 96361; 96365; 96375; 99284-25; A9270-GY; J0696; J1170; J2250; J2405; J2543; J2704; J3010; J7030; J7050

== ENCOUNTER 2019-09-01 07:34 | Emergency (ER) | payer OTHER ==
[2019-09-01 07:46] VITALS: BP 151/82; PULSE 84
[2019-09-01] MEDS ORDERED: Cetirizine 10 MG Tab PO ONE (08:09)
--- NOTE | 2019-09-01 08:14 | EDM.PDOC ---
ED HPI GENERAL MEDICAL PROBLEM - General Chief Complaint: Skin Complaint Stated Complaint: HIVES,SHORTNESS OF BREATH Time Seen by Provider: 09/01/19 07:55 Source of Information: Reports: Patient, Old Records, RN History Limitations: Reports: No Limitations - History of Present Illness INITIAL COMMENTS - FREE TEXT/NARRATIVE: 63 yo female presents with itching that she describes as hives. Has SOB as well. Sx's for a few week, has been seeing Dr. Johnson for this. Is not necessarily worse today. Saw Dr. Johnson last yesterday. No joint pains. Onset: Gradual Onset Date: 08/11/19 Duration: Week(s): (3), Getting Worse (very gradually) Location: Reports: Generalized Quality: Reports: Other (itching) Severity: Moderate Improves with: Reports: Medication (Benedryl, not taking because it is too sedating.) Worsens with: Reports: Other (unknown) Context: Reports: Other (See HPI) Associated Symptoms: Reports: Rash (diffuse mild redness), Shortness of Breath. Denies: Cough Treatments [employer]: Reports: Other (see below) (Steroid injection yesterday) - Related Data Allergies Allergy/AdvReac Type Severity Reaction Status Date / Time Sulfa (Sulfonamide Allergy Hives Verified 09/01/19 08:02 Antibiotics) Home Meds: Home Meds Digoxin [Lanoxin] 125 mcg PO DAILY #30 tablet 07/30/17 [Rx] Rosuvastatin [Crestor] 10 mg PO BEDTIME tablet 07/30/17 [Rx] Diltiazem HCl [Cardizem Cd] 180 mg PO DAILY 09/01/19 [History] Diltiazem HCl [Diltiazem 24Hr Cd] 240 mg PO DAILY 09/01/19 [History] Rivaroxaban [Xarelto] 20 mg PO DAILY 09/01/19 [History] Past Medical History Cardiovascular History: Reports: Blood Clots/VTE/DVT, High Cholesterol, Hypertension, Other (See Below) Other Cardiovascular History: SVT Dermatologic History: Reports: Other (See Below) Other Dermatologic History: hives - Infectious Disease History Infectious Disease History: Reports: Chicken Pox - Past Surgical History HEENT Surgical History: Reports: Tonsillectomy Female Surgical History: Reports: Hysterectomy, Salpingo-Oophorectomy Social & Family History - Tobacco Use Smoking Status *Q: Never Smoker - Caffeine Use Caffeine Use: Reports: Coffee - Recreational Drug Use Recreational Drug Use: No ED ROS GENERAL - Review of Systems Review Of Systems: See Below Constitutional: Reports: No Symptoms HEENT: Reports: No Symptoms Respiratory: Reports: Shortness of Breath. Denies: Wheezing, Cough, Sputum Cardiovascular: Reports: No Symptoms Endocrine: Reports: No Symptoms GI/Abdominal: Reports: No Symptoms : Reports: No Symptoms Musculoskeletal: Reports: No Symptoms Skin: Reports: Pruritis, Erythema Neurological: Reports: No Symptoms Psychiatric: Reports: No Symptoms ED EXAM, SKIN/RASH Exam: See Below Exam Limited By: No Limitations General Appearance: Alert, WD/WN, No Apparent Distress Eye Exam: Bilateral Eye: Normal Inspection Ears: Normal External Exam, Normal Canal, Hearing Grossly Normal, Normal TMs Nose: Normal Inspection, No Blood Throat/Mouth: Normal Inspection, Normal Lips, Normal Oropharynx, Normal Voice, No Airway Compromise Head: Atraumatic, Normocephalic Neck: Normal Inspection Respiratory/Chest: No Respiratory Distress, Lungs Clear, Normal Breath Sounds, No Accessory Muscle Use Cardiovascular: Regular Rate, Rhythm, No Edema (rings are tighter than normal per patient) Extremities: Normal Inspection, Non-Tender, No Pedal Edema. No: Pedal Edema Neurological: Alert, Oriented, CN II-XII Intact, Normal Cognition, No Motor/ Sensory Deficits Psychiatric: Normal Affect, Normal Mood Skin: Warm, Dry, Intact, No Rash, Erythema (diffusely, ? from scratching). No: Increased Warmth, Rash (no hives) Location, Skin: Generalized (variable ) Associated features: No: Warmth, Tenderness, Swelling, Induration, Lymphangitis Course - Vital Signs Last Recorded V/S: Last Vital Signs Temp 36.1 C 09/01/19 07:45 Pulse 84 09/01/19 07:45 Resp 16 09/01/19 07:45 BP 151/82 H 09/01/19 07:45 Pulse Ox 97 09/01/19 07:45 - Orders/Labs/Meds Orders: Active Orders 24 hr Category Date Time Status Cetirizine [ZyrTEC] Med 09/01/19 08:09 Once 10 mg PO ONETIME ONE Departure - Departure Time of Disposition: 08:16 Disposition: Home, Self-Care 01 Condition: Good Clinical Impression: Generalized pruritus - Discharge Information *PRESCRIPTION DRUG MONITORING PROGRAM REVIEWED*: Not Applicable *COPY OF PRESCRIPTION DRUG MONITORING REPORT IN PATIENT ESTRADA: Not Applicable Instructions: Pruritus Referrals: Matteo Johnson Sr, MD [Primary Care Provider] - Forms: ED Department Discharge Additional Instructions: Take cetirizine 10 mg every 24 hrs. Use Dove Unscented for bathing. Use hypoallergenic detergents and fabric softeners(white cap). Watch salt and salty food consumption as this will contribute to fluid retention. Follow up for recheck with Dr. Johnson. Sepsis Event Note - Evaluation Sepsis Screening Result: No Definite Risk - Focused Exam Vital Signs: Vital Signs Temp Pulse Resp BP Pulse Ox 09/01/19 07:45 36.1 C 84 16 151/82 H 97 Date Exam was Performed: 09/01/19 Time Exam was Performed: 08:09 - My Orders Last 24 Hours: My Active Orders 09/01/19 08:09 Cetirizine [ZyrTEC] 10 mg PO ONETIME ONE - Assessment/Plan Last 24 Hours: My Active Orders 09/01/19 08:09 Cetirizine [ZyrTEC] 10 mg PO ONETIME ONE
== END 2019-09-01 08:32 | disposition home or self-care (01) ==
LOC: JP.ED 07:34
DX: L29.9 Pruritus, unspecified (principal); E78.00 Pure hypercholesterolemia, unspecified; I10 Essential (primary) hypertension; Z88.2 Allergy status to sulfonamides; Z79.01 Long term (current) use of anticoagulants; Z79.899 Other long term (current) drug therapy
CPT/HCPCS: 99284; A9270

== ENCOUNTER 2021-07-01 12:44 | Inpatient (IN) | payer MEDICARE, BC ==
[2021-07-01] MEDS ORDERED: Sodium Chloride 0.9% 10 ML Syringe FLUSH PRN (13:26)
--- NOTE | 2021-07-01 13:28 | EDM.PDOC ---
ED HPI GENERAL MEDICAL PROBLEM - General Chief Complaint: Cardiovascular Problem Stated Complaint: FAST HEARTBEAT Time Seen by Provider: 07/01/21 13:21 Source of Information: Reports: Patient, RN Notes Reviewed History Limitations: Reports: No Limitations - History of Present Illness INITIAL COMMENTS - FREE TEXT/NARRATIVE: 65-year-old female presents emergency department day complaint of palpitations addendum the opportunity talk to her primary care provider Dr. Johnson who recommended she return to the emergency department. She has been having palpitation about 24 hours she was recently diagnosed with influenza A she has had symptoms for about 1 week. She states at rest she is fine as soon as she exerts herself her heart races she feels like she is going to pass out. Upon presentation to the ED nursing staff noticed her heart rate was 150 however by the time she got to the bed lay down heart rate then converted down to the 80s, she is on Eliquis - Related Data Allergies Allergy/AdvReac Type Severity Reaction Status Date / Time Sulfa (Sulfonamide Allergy Hives Verified 07/01/21 12:57 Antibiotics) Home Meds: Home Meds Rosuvastatin [Crestor] 10 mg PO BEDTIME tablet 07/30/17 [Rx] Apixaban [Eliquis] 5 mg PO BID 03/28/21 [History] Cholecalciferol (Vitamin D3) [Vitamin D3] 5,000 unit PO DAILY 03/30/21 [History] Verapamil HCl [Verapamil ER] 360 mg PO DAILY 03/30/21 [History] Past Medical History Cardiovascular History: Reports: Afib, Blood Clots/VTE/DVT, High Cholesterol, Hypertension, Other (See Below) Other Cardiovascular History: SVT Other Musculoskeletal History: right knee effusion Dermatologic History: Reports: Other (See Below) Other Dermatologic History: hives - Infectious Disease History Infectious Disease History: Reports: Chicken Pox - Past Surgical History HEENT Surgical History: Reports: Tonsillectomy GI Surgical History: Reports: Appendectomy Female Surgical History: Reports: Hysterectomy, Salpingo-Oophorectomy Social & Family History - Tobacco Use Tobacco Use Status *Q: Never Tobacco User Second Hand Smoke Exposure: No - Caffeine Use Caffeine Use: Reports: Coffee - Recreational Drug Use Recreational Drug Use: No ED ROS GENERAL - Review of Systems Review Of Systems: See Below Constitutional: Reports: No Symptoms HEENT: Reports: No Symptoms Respiratory: Reports: Shortness of Breath Cardiovascular: Reports: Blood Pressure Problem, Lightheadedness GI/Abdominal: Reports: No Symptoms ED EXAM, GENERAL - Physical Exam Exam: See Below Exam Limited By: No Limitations General Appearance: Alert, WD/WN, No Apparent Distress Respiratory/Chest: No Respiratory Distress, Lungs Clear, Normal Breath Sounds, No Accessory Muscle Use, Chest Non-Tender Cardiovascular: No Murmur, Irregularly Irregular #1 Interpretation EKG Date: 07/01/21 (n) Time: 14:19 Rhythm: NSR [place]: Normal P-Wave: Present QRS: Normal ST-T: Normal QT: Normal Comparison: Change From Previous EKG Course - Vital Signs Last Recorded V/S: Last Vital Signs Temp 96.7 F L 07/01/21 12:52 Pulse 70 07/01/21 14:52 Resp 23 H 07/01/21 14:52 BP 109/60 07/01/21 14:52 Pulse Ox 97 07/01/21 14:52 - Orders/Labs/Meds Orders: Active Orders 24 hr Category Date Time Status Cardiac Monitoring [RC] .As Directed Care 07/01/21 13:26 Active Peripheral IV Care [RC] . DIRECTED Care 07/01/21 13:26 Active Sodium Chloride 0.9% [Saline Flush] Med 07/01/21 13:26 Active 10 ml FLUSH ASDIRECTED PRN Peripheral IV Insertion Adult [OM.PC] Stat Oth 07/01/21 13:26 Ordered Saline Lock Insert [OM.PC] Stat Oth 07/01/21 13:26 Ordered EKG 12 Lead [EK] Stat Ther 07/01/21 13:26 Ordered Medication Orders Sodium Chloride (Sodium Chloride 0.9% 10 Ml Syringe) 10 ml FLUSH ASDIRECTED PRN PRN Reason: Keep Vein Open Labs: Laboratory Tests 07/01/21 07/01/21 Range/Units 13:37 13:37 WBC 9.2 (3.2-11.0) K/uL RBC 4.61 (3.77-5.24) M/uL Hgb 14.7 (11.2-15.5) Hct 43.6 (34.3-46.0) % MCV 94.6 (81.4-99.0) fL MCH 31.9 (31.6-35.5) pg MCHC 33.7 (31.6-35.5) g/dL Plt Count 267 (130-375) K/uL Immature Gran % (Auto) 0.3 (0.0-0.7) % Neut % (Auto) 71.0 H (36-66) % Lymph % (Auto) 19.7 L (24-44) % [place] % (Auto) 6.7 H (2-6) % Eos % (Auto) 2.1 (2-4) % Baso % (Auto) 0.2 (0-1) % Neut # (Auto) 6.54 (1.0-7.6) K/uL Lymph # (Auto) 1.82 (0.8-3.3) K/uL [place] # (Auto) 0.62 (0.20-0.90) K/uL Eos # (Auto) 0.19 (0.00-0.40) K/uL Baso # (Auto) 0.02 (0.00-0.10) K/uL Immature Gran # (Auto) 0.03 (0.00-0.23) K/uL Sodium 142 (140-148) mmol/L Potassium 3.8 (3.6-5.2) mmol/L Chloride 106 (100-108) mmol/L Carbon Dioxide 24 (21-32) mmol/L Anion Gap 12.1 (5.0-14.0) mmol/L BUN 17 D (7-18) mg/dL Creatinine 0.9 (0.6-1.0) mg/dL Est Cr Clr Drug Dosing 56.08 mL/min Estimated GFR (MDRD) > 60 (>60) Glucose 97 (74-106) mg/dL Calcium 9.3 (8.5-10.1) mg/dL Troponin I High Sens 9.6 (<=60.3) pg/mL Meds: Medications Generic Name Dose Route Start Last Admin Trade Name Freq PRN Reason Stop Dose Admin Sodium Chloride 10 ml 07/01/21 13:26 Sodium Chloride 0.9% 10 Ml Syringe FLUSH ASDIRECTED PRN Keep Vein Open Departure - Departure Time of Disposition: 15:29 Disposition: DC/Tfer to Acute Hospital 02 Reason for Transfer *Q: Other Condition: Fair Clinical Impression: Atrial fibrillation with RVR Referrals: Matteo Johnson Sr, MD [Primary Care Provider] - Forms: ED Department Discharge Sepsis Event Note (ED) - Evaluation Sepsis Screening Result: No Definite Risk - Focused Exam Vital Signs: Vital Signs Temp Pulse Resp BP Pulse Ox 07/01/21 14:52 70 23 H 109/60 97 07/01/21 14:09 73 18 107/60 96 07/01/21 13:08 74 21 H 119/68 100 07/01/21 12:52 96.7 F L 150 H 20 135/70 100 - My Orders Last 24 Hours: My Active Orders 07/01/21 13:26 Cardiac Monitoring [RC] .As Directed Peripheral IV Care [RC] . DIRECTED Sodium Chloride 0.9% [Saline Flush] 10 ml FLUSH ASDIRECTED PRN Peripheral IV Insertion Adult [OM.PC] Stat Saline Lock Insert [OM.PC] Stat EKG 12 Lead [EK] Stat - Assessment/Plan Last 24 Hours: My Active Orders 07/01/21 13:26 Cardiac Monitoring [RC] .As Directed Peripheral IV Care [RC] . DIRECTED Sodium Chloride 0.9% [Saline Flush] 10 ml FLUSH ASDIRECTED PRN Peripheral IV Insertion Adult [OM.PC] Stat Saline Lock Insert [OM.PC] Stat EKG 12 Lead [EK] Stat Plan: Assessment Acuity = acute Site and laterality = atrial fibrillation with rapid ventricular response spontaneous conversion to sinus rhythm Etiology = unknown Manifestations = none Location of injury = Home Lab values = CBC BMP troponin all within normal limits EKG demonstrates sinus rhythm with no ST elevations or depressions Plan Called discussed case with her primary care Dr. Johnson at 1530 plan is to admit to the hospital start sotalol observation if stable and works out then follow-up with cardiology to see if she is a candidate for ablation This note was dictated using [employer] recognition software please call with any questions on syntax or grammar.
--- NOTE | 2021-07-01 16:43 | PCM.HP.2 ---
H&P History of Present Illness - General Date of Service: 07/01/21 Admit Problem/Dx: Admission Diagnosis/Problem Admission Diagnosis/Problem Cardiac arrhythmia Source of Information: Patient, EMS Notes Reviewed History Limitations: Reports: No Limitations - History of Present Illness Initial Comments - Free Text/Narative: She has had a rapid heart rate often. Was seen in the clinic 5 days ago and had a heart rate of 165 but refused admission as she was found to have Influenza A and she felt the rhythm problem would go away with rest. The EKG showed AF with a Tachy response. She called this morning not feeling well as her heart was 160 per min. She had weakness with exertion. I told he to come the the ER. When she arrived and put on a cardiac exercise physiologist and she was in AF with tachycardiac response. She then converted spontaneously and started to feel good. She has been on Verapamil which had been controlling her rate until recently. She will be admitted and placed on Sotalol 80 mg bid and will be adjusted. I feel she would benefit from a cardiac ablation. Onset of Symptoms: Reports: Gradual Associated Symptoms: Reports: Shortness of Breath, Weakness - Related Data Allergies/Adverse Reactions: Allergies Allergy/AdvReac Type Severity Reaction Status Date / Time Sulfa (Sulfonamide Allergy Hives Verified 07/01/21 12:57 Antibiotics) Home Medications: Home Meds Rosuvastatin [Crestor] 10 mg PO BEDTIME tablet 07/30/17 [Rx] Apixaban [Eliquis] 5 mg PO BID 03/28/21 [History] Cholecalciferol (Vitamin D3) [Vitamin D3] 5,000 unit PO DAILY 03/30/21 [History] Verapamil HCl [Verapamil ER] 360 mg PO DAILY 03/30/21 [History] Past Medical History Cardiovascular History: Reports: Afib, Blood Clots/VTE/DVT, High Cholesterol, Hypertension, Other (See Below) Other Cardiovascular History: SVT Other Musculoskeletal History: right knee effusion Dermatologic History: Reports: Other (See Below) Other Dermatologic History: hives - Infectious Disease History Infectious Disease History: Reports: Chicken Pox - Past Surgical History HEENT Surgical History: Reports: Tonsillectomy GI Surgical History: Reports: Appendectomy Female Surgical History: Reports: Hysterectomy, Salpingo-Oophorectomy Social & Family History - Tobacco Use Tobacco Use Status *Q: Never Tobacco User Second Hand Smoke Exposure: No - Caffeine Use Caffeine Use: Reports: Coffee - Recreational Drug Use Recreational Drug Use: No H&P Review of Systems - Review of Systems: Review Of Systems: See Below General: Reports: Weakness, Decreased Appetite HEENT: Reports: No Symptoms Pulmonary: Reports: Shortness of Breath Cardiovascular: Reports: Palpitations, Dyspnea on Exertion Gastrointestinal: Reports: No Symptoms Genitourinary: Reports: No Symptoms Musculoskeletal: Reports: No Symptoms Skin: Reports: No Symptoms Psychiatric: Reports: Anxiety Neurological: Reports: Dizziness, Numbness, Difficulty Walking, Weakness, Gait Disturbance Immunologic: Reports: No Symptoms Exam - Exam Exam: See Below - Vital Signs Vital Signs: Last Vital Signs Temp 96.7 F L 07/01/21 12:52 Pulse 64 07/01/21 16:27 Resp 13 07/01/21 16:27 BP 122/81 07/01/21 16:27 Pulse Ox 97 07/01/21 14:52 Weight: 177 lb - Exam General: Alert, Oriented, 4 HEENT: PERRLA, Hearing Intact, Mucosa Moist & [place], Nares Patent, Normal Nasal Septum, Posterior Pharynx Clear, Conjunctiva Clear, EOMI, EACs Clear, TMs Clear Neck: Supple, Trachea Midline, 2 Lungs: Clear to Auscultation, Normal Respiratory Effort Cardiovascular: Regular Rate, Regular Rhythm GI/Abdominal Exam: Normal Bowel Sounds, Soft, Non-Tender, No Organomegaly, No Distention, No Abnormal Bruit, No Mass, Pelvis Stable Extremities: Leg Pain, Other (Pain right knee with LROM with pain.) Peripheral Pulses: 1+: Brachial (R), Radial (L) Neurological: Cranial Nerves Intact, Reflexes Equal Bilateral Neuro Extensive - Mental Status: Alert, Oriented x3, Normal Mood/Affect, Normal Cognition, Memory Intact DTR: 1+: Bicep (L), Bicep (R) Psychiatric: Alert, Normal Affect - Patient Data Lab Results Last 24 hrs: Laboratory Results - last 24 hr 07/01/21 07/01/21 Range/Units 13:37 13:37 WBC 9.2 (3.2-11.0) K/uL RBC 4.61 (3.77-5.24) M/uL Hgb 14.7 (11.2-15.5) Hct 43.6 (34.3-46.0) % MCV 94.6 (81.4-99.0) fL MCH 31.9 (31.6-35.5) pg MCHC 33.7 (31.6-35.5) g/dL Plt Count 267 (130-375) K/uL Immature Gran % (Auto) 0.3 (0.0-0.7) % Neut % (Auto) 71.0 H (36-66) % Lymph % (Auto) 19.7 L (24-44) % [place] % (Auto) 6.7 H (2-6) % Eos % (Auto) 2.1 (2-4) % Baso % (Auto) 0.2 (0-1) % Neut # (Auto) 6.54 (1.0-7.6) K/uL Lymph # (Auto) 1.82 (0.8-3.3) K/uL [place] # (Auto) 0.62 (0.20-0.90) K/uL Eos # (Auto) 0.19 (0.00-0.40) K/uL Baso # (Auto) 0.02 (0.00-0.10) K/uL Immature Gran # (Auto) 0.03 (0.00-0.23) K/uL Sodium 142 (140-148) mmol/L Potassium 3.8 (3.6-5.2) mmol/L Chloride 106 (100-108) mmol/L Carbon Dioxide 24 (21-32) mmol/L Anion Gap 12.1 (5.0-14.0) mmol/L BUN 17 D (7-18) mg/dL Creatinine 0.9 (0.6-1.0) mg/dL Est Cr Clr Drug Dosing 56.08 mL/min Estimated GFR (MDRD) > 60 (>60) Glucose 97 (74-106) mg/dL Calcium 9.3 (8.5-10.1) mg/dL Troponin I High Sens 9.6 (<=60.3) pg/mL Result Diagrams: 07/01/21 13:37 07/01/21 13:37 Sepsis Event Note - Evaluation Sepsis Screening Result: No Definite Risk - Focused Exam Vital Signs: Vital Signs Temp Pulse Resp BP Pulse Ox 07/01/21 16:27 64 13 122/81 07/01/21 15:32 89 24 H 100/73 07/01/21 14:52 70 23 H 109/60 97 07/01/21 14:09 73 18 107/60 96 07/01/21 13:08 74 21 H 119/68 100 07/01/21 12:52 96.7 F L 150 H 20 135/70 100 Problem List Initiated/Reviewed/Updated: Yes Orders Last 24hrs: Active Orders 24 hr Category Date Time Status Patient Status [ADT] Routine ADT 07/01/21 16:23 Ordered Cardiac Monitoring [RC] .As Directed Care 07/01/21 13:26 Active Oxygen Therapy [RC] PRN Care 07/01/21 16:23 Ordered Peripheral IV Care [RC] . DIRECTED Care 07/01/21 13:26 Active VTE/DVT Education [RC] Per Unit Routine Care 07/01/21 16:23 Ordered Vital Signs [RC] Q4H Care 07/01/21 16:23 Ordered Regular Diet [DIET] Diet 07/01/21 Dinner Ordered Apixaban [Eliquis] Med 07/01/21 21:00 Ordered 5 mg PO BID Cholecalciferol (Vitamin D3) [Vitamin D3] Med 07/02/21 09:00 Ordered 5,000 unit PO DAILY Rosuvastatin [Crestor] Med 07/01/21 21:00 Ordered 10 mg PO BEDTIME Sodium Chloride 0.9% [Saline Flush] Med 07/01/21 13:26 Active 10 ml FLUSH ASDIRECTED PRN Sotalol [Betapace] Med 07/01/21 21:00 Ordered 80 mg PO BID Verapamil HCl [Verapamil ER] Med 07/02/21 09:00 Ordered 360 mg PO DAILY Peripheral IV Insertion Adult [OM.PC] Stat Oth 07/01/21 13:26 Ordered Saline Lock Insert [OM.PC] Stat Oth 07/01/21 13:26 Ordered Resuscitation Status Routine Resus Stat 07/01/21 16:23 Ordered EKG 12 Lead [EK] Stat Ther 07/01/21 13:26 Ordered Medication Orders Apixaban (Apixaban 5 Mg Tab) 5 mg PO BID [facility] Non-Formulary Medication (Cholecalciferol (Vitamin D3) [Vitamin D3]) 5,000 unit PO DAILY [facility] Non-Formulary Medication (Verapamil Hcl [Verapamil Er]) 360 mg PO DAILY [facility] Rosuvastatin Calcium (Rosuvastatin 10 Mg Tab) 10 mg PO BEDTIME [facility] Sodium Chloride (Sodium Chloride 0.9% 10 Ml Syringe) 10 ml FLUSH ASDIRECTED PRN PRN Reason: Keep Vein Open Sotalol HCl (Sotalol 80 Mg Tab) 80 mg PO BID [facility] Assessment/Plan Comment:: Assessment/Plan: #1. Recurrent Atrial fib. Converted spontaneously to NSR. Have admitted to the hospital to control the heart rhythm and consider an ablation of the heart if needed. #2. DJD right Knee: Surgery pending in one month #3. Hx DVT Left leg on anticoagulant. #4. Hx Ca of uterus age 23 with s/p hysterectomy. #5. Hx neuroma left foot.
[2021-07-01 17:35] LABS: CORONAVIRUS COVID-19 NAA NEGATIVE (NEGATIVE)
[2021-07-01] MEDS: Sotalol 80 MG Tab PO SCH (21:00)
[2021-07-01] MEDS: Apixaban 5 MG Tab PO SCH (21:02)
[2021-07-01] MEDS: Rosuvastatin 10 MG Tab PO SCH (21:02)
[2021-07-02] MEDS ORDERED: Acetaminophen 325 MG Tab PO PRN (03:14)
[2021-07-02] MEDS ORDERED: Verapamil 180 MG Tab.ER PO SCH (09:00)
[2021-07-02] MEDS ORDERED: Cholecalciferol (Vitamin D3) 25 MCG Tab PO SCH (09:00)
[2021-07-02] MEDS: Apixaban 5 MG Tab PO SCH ×2 (09:23→21:42)
[2021-07-02] MEDS: Sotalol 80 MG Tab PO SCH ×3 (10:58→21:40)
--- NOTE | 2021-07-02 15:28 | PCM.PN ---
- General Info Date of Service: 07/02/21 Functional Status: Reports: Pain Controlled - Review of Systems General: Reports: Weakness HEENT: Reports: No Symptoms Pulmonary: Reports: No Symptoms Cardiovascular: Reports: No Symptoms Gastrointestinal: Reports: No Symptoms Genitourinary: Reports: No Symptoms Musculoskeletal: Reports: No Symptoms Skin: Reports: No Symptoms Neurological: Reports: No Symptoms Psychiatric: Reports: No Symptoms - Patient Data Vitals - Most Recent: Last Vital Signs Temp 99.2 F 07/02/21 14:20 Pulse 55 L 07/02/21 14:20 Resp 16 07/02/21 14:20 BP 122/63 07/02/21 14:20 Pulse Ox 96 07/02/21 14:20 Orthostatic Blood Pressure [ 113/55 Supine] Orthostatic Blood Pressure [ 89/59 Standing] Orthostatic Blood Pressure [ 101/49 Sitting] Weight - Most Recent: 177 lb I&O - Last 24 Hours: Intake & Output 07/02/21 07/02/21 07/02/21 06:59 14:59 22:59 Intake Total 700 Balance 700 Lab Results Last 24 Hours: Laboratory Results - last 24 hr 07/01/21 Range/Units 16:48 Influenza Type A RNA Negative (NEGATIVE) RSV RNA (INAAT) Negative (NEGATIVE) Influenza Type B RNA Negative (NEGATIVE) SARS-CoV-2 RNA (RUCHI) Negative (NEGATIVE) Med Orders - Current: Current Medications Acetaminophen (Acetaminophen 325 Mg Tab) 650 mg PO Q6H PRN PRN Reason: Pain Last Admin: 07/02/21 03:28 Dose: 650 mg Documented by: Apixaban (Apixaban 5 Mg Tab) 5 mg PO BID [facility] Last Admin: 07/02/21 09:23 Dose: 5 mg Documented by: Cholecalciferol (Cholecalciferol (Vitamin D3) 25 Mcg Tab) 125 mcg PO DAILY [facility] Last Admin: 07/02/21 09:23 Dose: 125 mcg Documented by: Rosuvastatin Calcium (Rosuvastatin 10 Mg Tab) 10 mg PO BEDTIME [facility] Last Admin: 07/01/21 21:02 Dose: 10 mg Documented by: Sodium Chloride (Sodium Chloride 0.9% 10 Ml Syringe) 10 ml FLUSH ASDIRECTED PRN PRN Reason: Keep Vein Open Sotalol HCl (Sotalol 80 Mg Tab) 40 mg PO BID [facility] Last Admin: 07/02/21 10:58 Dose: Not Given Documented by: Verapamil HCl (Verapamil 180 Mg Tab.Er) 360 mg PO DAILY [facility] Last Admin: 07/02/21 10:58 Dose: Not Given Documented by: Discontinued Medications Sotalol HCl (Sotalol 80 Mg Tab) 80 mg PO BID [facility] Last Admin: 07/02/21 10:59 Dose: Not Given Documented by: - Exam General: Alert, Oriented Neck: Supple Lungs: Clear to Auscultation, Normal Respiratory Effort Cardiovascular: Regular Rate, Regular Rhythm Back Exam: Normal Inspection, Full Range of Motion Extremities: Normal Inspection, Normal Range of Motion, Non-Tender, No Pedal Edema, Normal Capillary Refill Peripheral Pulses: 1+: Radial (L), Radial (R) Skin: Warm, Dry, Intact Psy/Mental Status: Alert, Normal Affect, Normal Mood - Patient Data Lab Results Last 24 hrs: Laboratory Results - last 24 hr 07/01/21 Range/Units 16:48 Influenza Type A RNA Negative (NEGATIVE) RSV RNA (INAAT) Negative (NEGATIVE) Influenza Type B RNA Negative (NEGATIVE) SARS-CoV-2 RNA (RUCHI) Negative (NEGATIVE) Result Diagrams: 07/01/21 13:37 07/01/21 13:37 Sepsis Event Note - Evaluation Sepsis Screening Result: No Definite Risk - Focused Exam Vital Signs: Vital Signs Temp Pulse Resp BP Pulse Ox 07/02/21 14:20 99.2 F 55 L 16 122/63 96 07/02/21 08:00 49 L 07/02/21 07:00 97.7 F 57 L 16 109/56 L 96 - Problem List Review Problem List Initiated/Reviewed/Updated: Yes - My Orders Last 24 Hours: My Active Orders 07/01/21 16:23 Patient Status [ADT] Routine Oxygen Therapy [RC] PRN Vital Signs [RC] Q4H Resuscitation Status Routine 07/01/21 16:47 Isolation [COMM] Stat 07/01/21 Dinner Regular Diet [DIET] 07/01/21 21:00 Apixaban [Eliquis] 5 mg PO BID Rosuvastatin [Crestor] 10 mg PO BEDTIME 07/02/21 03:14 Acetaminophen [TylenoL] 650 mg PO Q6H PRN 07/02/21 09:00 Cholecalciferol (Vitamin D3) [Vitamin D3] 125 mcg PO DAILY Verapamil [Cal[place] SR] 360 mg PO DAILY 07/02/21 09:45 Sotalol [Betapace] 40 mg PO BID - Plan Plan:: Assessment/Plan: #1. Recurrent Atrial fib. Heart rate is controlled. BP was low after using the Sotalol. Held the Meds today. I feel we need the ablation of the Atrium to control the rate. I am waiting for a referral. #2. DJD right Knee: Surgery pending in one month #3. Hx DVT Left leg on anticoagulant. #4. Hx Ca of uterus age 23 with s/p hysterectomy. #5. Hx neuroma left foot.
[2021-07-02] MEDS: Rosuvastatin 10 MG Tab PO SCH (21:42)
[2021-07-03 07:29] VITALS: BP 127/59; PULSE 59
--- NOTE | 2021-07-03 08:48 | PCM.PN ---
- General Info Date of Service: 07/03/21 Functional Status: Reports: Pain Controlled - Review of Systems General: Reports: Weakness HEENT: Reports: No Symptoms Pulmonary: Reports: Shortness of Breath Cardiovascular: Reports: Palpitations, Dyspnea on Exertion Gastrointestinal: Reports: No Symptoms Genitourinary: Reports: No Symptoms Musculoskeletal: Reports: Back Pain Skin: Reports: No Symptoms Neurological: Reports: No Symptoms Psychiatric: Reports: Anxiety - Patient Data Vitals - Most Recent: Last Vital Signs Temp 97.6 F 07/03/21 07:00 Pulse 59 L 07/03/21 07:00 Resp 16 07/03/21 07:00 BP 127/59 L 07/03/21 07:00 Pulse Ox 98 07/03/21 07:00 Orthostatic Blood Pressure [ 113/55 Supine] Orthostatic Blood Pressure [ 89/59 Standing] Orthostatic Blood Pressure [ 101/49 Sitting] Weight - Most Recent: 177 lb Med Orders - Current: Current Medications Acetaminophen (Acetaminophen 325 Mg Tab) 650 mg PO Q6H PRN PRN Reason: Pain Last Admin: 07/02/21 03:28 Dose: 650 mg Documented by: Apixaban (Apixaban 5 Mg Tab) 5 mg PO BID [facility] Last Admin: 07/02/21 21:42 Dose: 5 mg Documented by: Cholecalciferol (Cholecalciferol (Vitamin D3) 25 Mcg Tab) 125 mcg PO DAILY [facility] Last Admin: 07/02/21 09:23 Dose: 125 mcg Documented by: Rosuvastatin Calcium (Rosuvastatin 10 Mg Tab) 10 mg PO BEDTIME [facility] Last Admin: 07/02/21 21:42 Dose: 10 mg Documented by: Sodium Chloride (Sodium Chloride 0.9% 10 Ml Syringe) 10 ml FLUSH ASDIRECTED PRN PRN Reason: Keep Vein Open Sotalol HCl (Sotalol 80 Mg Tab) 40 mg PO BID [facility] Last Admin: 07/02/21 21:40 Dose: Not Given Documented by: Verapamil HCl (Verapamil 180 Mg Tab.Er) 360 mg PO DAILY [facility] Last Admin: 07/02/21 10:58 Dose: Not Given Documented by: Discontinued Medications Sotalol HCl (Sotalol 80 Mg Tab) 80 mg PO BID [facility] Last Admin: 07/02/21 10:59 Dose: Not Given Documented by: - Exam General: Alert, Oriented HEENT: Pupils Equal, Pupils Reactive, EOMI, Mucous Membr. Moist/[place] Neck: Supple Lungs: Clear to Auscultation, Normal Respiratory Effort Cardiovascular: Regular Rate GI/Abdominal Exam: Normal Bowel Sounds, Soft, Non-Tender, No Organomegaly, No Distention, No Abnormal Bruit, No Mass, Pelvis Stable Back Exam: Normal Inspection, Full Range of Motion Extremities: Normal Inspection, Normal Range of Motion Peripheral Pulses: 1+: Radial (L), Radial (R) Skin: Warm, Dry, Intact Psy/Mental Status: Alert, Normal Affect, Normal Mood - Patient Data Result Diagrams: 07/01/21 13:37 07/01/21 13:37 Sepsis Event Note - Evaluation Sepsis Screening Result: No Definite Risk - Focused Exam Vital Signs: Vital Signs Temp Pulse Pulse Resp BP BP Pulse Ox 07/03/21 07:00 97.6 F 59 L 16 127/59 L 98 07/03/21 02:19 97.3 F 57 L 16 117/67 97 07/03/21 00:13 97.1 F 61 16 113/59 L 96 07/02/21 21:40 55 L 107/47 L 07/02/21 21:00 98.7 F 63 16 107/59 L 97 - Problem List Review Problem List Initiated/Reviewed/Updated: Yes - My Orders Last 24 Hours: My Active Orders 07/02/21 09:00 Cholecalciferol (Vitamin D3) [Vitamin D3] 125 mcg PO DAILY Verapamil [Calan SR] 360 mg PO DAILY 07/02/21 09:45 Sotalol [Betapace] 40 mg PO BID - Plan Plan:: Assessment/Plan: #1. Recurrent Atrial fib. Heart rate is controlled at the present was up to 170 this morning and she was feeling weak. BP was low after using the Sotalol. Held the Meds today. Ablation to be done today. #2. DJD right Knee: Surgery pending in one month #3. Hx DVT Left leg on anticoagulant. #4. Hx Ca of uterus age 23 with s/p hysterectomy. #5. Hx neuroma left foot. Will be discharged today.
--- NOTE | 2021-07-03 08:55 | PCM.DCSUM1 ---
Discharge Summary - Hospital Course Brief History: Admitted from home having a rapid heart rate and in AF and Converted while in the ER to NSR. This has been a recurrent problem recently. Diagnosis: Stroke: No Modified [place] Scale: No Symptoms at All Modified Devan Scale Score: 0 - Discharge Data Discharge Date: 07/03/21 Discharge Disposition: DC/Tfer to Acute Hospital 02 Condition: Good - Referral to Home Health Primary Care Physician: Matteo Johnson Sr, MD - Patient Summary/Data Hospital Course: Continued on her home medicine and Sotalol started and became hypotensive and bradycardic. Meds were held yesterday and rate and BP improved but had a tachycardic episode this morning of 170. Meds have been held and will be transferred by private car for an ablation by Dr. Smallwood today. - Patient Instructions Diet, Other: NPO Activity: As Tolerated - Discharge Plan Home Medications: Home Meds Rosuvastatin [Crestor] 10 mg PO BEDTIME tablet 07/30/17 [Rx] Apixaban [Eliquis] 5 mg PO BID 03/28/21 [History] Verapamil HCl [Verapamil ER] 360 mg PO DAILY 03/30/21 [History] Referrals: Matteo Johnson Sr, MD [Primary Care Provider] - - Discharge Summary/Plan Comment DC Time >30 min.: No Total # of Minutes for Discharge Time: 10 Discharge Summary/Plan Comment: Assessment/Plan: #1. Recurrent Atrial fib. Heart rate is controlled at the present was up to 170 this morning and she was feeling weak. BP was low after using the Sotalol. Held the Meds today. Ablation to be done today. #2. DJD right Knee: Surgery pending in one month #3. Hx DVT Left leg on anticoagulant. #4. Hx Ca of uterus age 23 with s/p hysterectomy. #5. Hx neuroma left foot. Will be discharged today. - General Info Functional Status: Reports: Pain Controlled - Review of Systems General: Reports: Weakness, Fatigue HEENT: Reports: No Symptoms Pulmonary: Reports: No Symptoms Cardiovascular: Reports: Palpitations, Dyspnea on Exertion Gastrointestinal: Reports: No Symptoms Genitourinary: Reports: No Symptoms Musculoskeletal: Reports: Back Pain Skin: Reports: No Symptoms Neurological: Reports: No Symptoms Psychiatric: Reports: Anxiety - Patient Data Vitals - Most Recent: Last Vital Signs Temp 97.6 F 07/03/21 07:00 Pulse 59 L 07/03/21 07:00 Resp 16 07/03/21 07:00 BP 127/59 L 07/03/21 07:00 Pulse Ox 98 07/03/21 07:00 Orthostatic Blood Pressure [ 113/55 Supine] Orthostatic Blood Pressure [ 89/59 Standing] Orthostatic Blood Pressure [ 101/49 Sitting] Weight - Most Recent: 177 lb Med Orders - Current: Current Medications Acetaminophen (Acetaminophen 325 Mg Tab) 650 mg PO Q6H PRN PRN Reason: Pain Last Admin: 07/02/21 03:28 Dose: 650 mg Documented by: Apixaban (Apixaban 5 Mg Tab) [address] [facility] Last Admin: 07/02/21 21:42 Dose: 5 mg Documented by: Cholecalciferol (Cholecalciferol (Vitamin D3) 25 Mcg Tab) [address] [facility] Last Admin: 07/02/21 09:23 Dose: 125 mcg Documented by: Rosuvastatin Calcium (Rosuvastatin 10 Mg Tab) [address] [facility] Last Admin: 07/02/21 21:42 Dose: 10 mg Documented by: Sodium Chloride (Sodium Chloride 0.9% 10 Ml Syringe) 10 ml FLUSH ASDIRECTED PRN PRN Reason: Keep Vein Open Sotalol HCl (Sotalol 80 Mg Tab) [address] [facility] Last Admin: 07/02/21 21:40 Dose: Not Given Documented by: Verapamil HCl (Verapamil 180 Mg Tab.Er) [address] [facility] Last Admin: 07/02/21 10:58 Dose: Not Given Documented by: Discontinued Medications Sotalol HCl (Sotalol 80 Mg Tab) [address] [facility] Last Admin: 07/02/21 10:59 Dose: Not Given Documented by: - Exam General: Reports: Alert, Oriented HEENT: Reports: Pupils Equal, Pupils Reactive, EOMI, Mucous Membr. Moist/[place] Neck: Reports: Supple Lungs: Reports: Clear to Auscultation, Normal Respiratory Effort Cardiovascular: Reports: Regular Rate, Regular Rhythm GI/Abdominal Exam: Normal Bowel Sounds, Soft, Non-Tender, No Organomegaly, No Distention, No Abnormal Bruit, No Mass, Pelvis Stable Extremities: Normal Inspection, Normal Range of Motion, Non-Tender, No Pedal Edema, Normal Capillary Refill Skin: Reports: Warm, Dry, Intact Neurological: Reports: No New Focal Deficit Psy/Mental Status: Reports: Alert, Normal Affect, Normal Mood
[2021-07-03] MEDS: Apixaban 5 MG Tab PO SCH (09:09)
== END 2021-07-03 09:20 | DRG 310 ==
LOC: JP.ED 12:44 → JP.MS 16:23
PROVIDERS: ADMIT Internal Medicine; ATTEND Internal Medicine
DX: I48.91 Unspecified atrial fibrillation (principal); I95.9 Hypotension, unspecified; I10 Essential (primary) hypertension; R00.1 Bradycardia, unspecified; M17.11 Unilateral primary osteoarthritis, right knee; D36.10 Benign neoplasm of peripheral nerves and autonomic nervous system, unspecified; E78.00 Pure hypercholesterolemia, unspecified; Z90.89 Acquired absence of other organs; Z90.49 Acquired absence of other specified parts of digestive tract; Z85.42 Personal history of malignant neoplasm of other parts of uterus; Z79.01 Long term (current) use of anticoagulants; Z79.899 Other long term (current) drug therapy; Z86.718 Personal history of other venous thrombosis and embolism; Z88.2 Allergy status to sulfonamides; Z90.710 Acquired absence of both cervix and uterus; Z20.822 Contact with and (suspected) exposure to COVID-19; R00.0 Tachycardia, unspecified
CPT/HCPCS: 0241U; 36415; 80048; 84484; 85025; 93005; 99285-25; A9270-GY

== ENCOUNTER 2021-10-01 08:48 | Day surgery (SDC) | payer MEDICARE, BC ==
[~2021-10-01 08:48] MED LIST: Bupivacaine 0.5% 50 ML MDV ONE
[2021-10-01] MEDS ORDERED: fentaNYL 100 MCG/2 ML SDV ONE (09:29)
[2021-10-01] MEDS ORDERED: Propofol 200 MG/20 ML SDV ONE ×3 (09:29→13:52)
[2021-10-01] MEDS ORDERED: Midazolam 1 MG/ML 2 ML SDV ONE ×2 (09:29→12:58)
[2021-10-01] MEDS ORDERED: Nozin Nasal Sanitizer NASBOTH SCH (09:30)
[2021-10-01] MEDS ORDERED: Lactated Ringers 1,000 ML IV SCH (09:30)
[2021-10-01] MEDS ORDERED: Lidocaine 1% 2 ML ONE (10:02)
[2021-10-01] MEDS ORDERED: Ondansetron 4 MG/2 ML SDV ONE (13:20)
[2021-10-01] MEDS ORDERED: Dexamethasone 4 MG/ML SDV ONE (13:20)
[2021-10-01] MEDS ORDERED: Lactated Ringers 1,000 ML ONE (13:54)
[2021-10-01] MEDS ORDERED: Bupivacaine 0.5% 50 ML MDV INJECT ONE (14:16)
[2021-10-01] MEDS ORDERED: traMADol 50 MG Tab PO PRN (14:26)
[2021-10-01] MEDS ORDERED: Morphine 2 MG/ML SYRINGE IVPUSH PRN (14:26)
[2021-10-01] MEDS ORDERED: Magnesium Hydroxide 400 MG/5 ML Susp 30 ML Cup PO PRN (14:26)
[2021-10-01] MEDS: Acetaminophen 325 MG Tab PO SCH ×2 (15:53→21:42)
[2021-10-01] MEDS: Ketorolac 30 MG/ML SDV IVPUSH SCH ×2 (15:53→23:14)
[2021-10-01] MEDS: ceFAZolin 1 GM in Premix Bag 1 BAG IV SCH (19:20)
[2021-10-01] MEDS: Sodium Chloride 0.9% 1,000 ML IV SCH (19:20)
[2021-10-01] MEDS: Nozin Nasal Sanitizer NASBOTH SCH (20:18)
[2021-10-01] MEDS: Docusate Sodium 100 MG Cap PO SCH (20:18)
[2021-10-02] MEDS: Sodium Chloride 0.9% 1,000 ML IV SCH (04:13)
[2021-10-02] MEDS: Acetaminophen 325 MG Tab PO SCH ×2 (04:14→09:33)
[2021-10-02] MEDS: ceFAZolin 1 GM in Premix Bag 1 BAG IV SCH (04:14)
[2021-10-02] MEDS: Acetaminophen/oxyCODONE 325-5 MG Tab PO PRN ×3 (07:10→15:15)
[2021-10-02] MEDS: Ketorolac 30 MG/ML SDV IVPUSH SCH (08:38)
[2021-10-02] MEDS: Docusate Sodium 100 MG Cap PO SCH (08:40)
[2021-10-02] MEDS: Nozin Nasal Sanitizer NASBOTH SCH (08:40)
[2021-10-02] MEDS ORDERED: Diltiazem 120 MG Cap.CD PO SCH (09:00)
[2021-10-02] MEDS ORDERED: Apixaban 5 MG Tab PO SCH (09:00)
[2021-10-02] MEDS ORDERED: Lisinopril 10 MG Tab PO SCH (09:00)
[2021-10-02 10:58] VITALS: BP 115/52; PULSE 70
== END 2021-10-02 15:30 | disposition home or self-care (01) ==
LOC: JP.SDS 08:48 → JP.2SS 14:55 → JP.SDS 10-02 15:30
PROVIDERS: ATTEND Specialist
DX: M17.11 Unilateral primary osteoarthritis, right knee (principal); I10 Essential (primary) hypertension; Z88.2 Allergy status to sulfonamides
CPT/HCPCS: 27438; 36415; 73560; 80053; 85027; 97110; 97116; 97162; 97530; 97535; A9270; C1713; C1776; J0690; J1100; J1885; J2250; J2270; J2405; J2704; J3010; J3490; J7030; J7120

== ENCOUNTER 2022-01-21 05:59 | Day surgery (SDC) | payer MEDICARE, BC ==
[2022-01-21] MEDS ORDERED: Nozin Nasal Sanitizer NASBOTH ONE (06:30)
[2022-01-21] MEDS ORDERED: Lactated Ringers 1,000 ML IV SCH (06:30)
[2022-01-21 06:48] LABS: ESTIMATED GFR 81 mL/min (>60)
[2022-01-21] MEDS ORDERED: Bupivacaine 0.5% 30 ML SDV ONE (06:57)
[2022-01-21] MEDS ORDERED: fentaNYL 250 MCG/5 ML SDV ONE (07:03)
[2022-01-21] MEDS ORDERED: Dexamethasone 4 MG/ML SDV ONE (07:04)
[2022-01-21] MEDS ORDERED: Midazolam 1 MG/ML 2 ML SDV ONE (07:04)
[2022-01-21] MEDS ORDERED: Ondansetron 4 MG/2 ML SDV ONE (07:04)
[2022-01-21] MEDS ORDERED: Propofol 200 MG/20 ML SDV ONE (07:04)
[2022-01-21] MEDS ORDERED: Lidocaine 1% 2 ML ONE (07:05)
[2022-01-21] MEDS ORDERED: ceFAZolin 2 GM in Premix Bag 1 BAG IV ONE (07:30)
[2022-01-21] MEDS ORDERED: fentaNYL 100 MCG/2 ML SDV ONE (08:39)
[2022-01-21] MEDS ORDERED: Acetaminophen/Codeine 300-30 MG Tab PO ONE (09:28)
[2022-01-21 11:46] VITALS: PULSE 73
[2022-01-21 11:48] VITALS: BP 111/57
== END 2022-01-21 12:05 | disposition home or self-care (01) ==
LOC: JP.SDS 05:59
PROVIDERS: ATTEND Specialist
DX: M65.861 Other synovitis and tenosynovitis, right lower leg (principal); M22.2X1 Patellofemoral disorders, right knee; I10 Essential (primary) hypertension; I48.91 Unspecified atrial fibrillation; I47.1 Supraventricular tachycardia; E78.00 Pure hypercholesterolemia, unspecified; Z98.890 Other specified postprocedural states; Z87.81 Personal history of (healed) traumatic fracture; Z79.810 Long term (current) use of selective estrogen receptor modulators (SERMs); Z79.891 Long term (current) use of opiate analgesic; Z88.2 Allergy status to sulfonamides; Z79.899 Other long term (current) drug therapy
CPT/HCPCS: 29875; 36415; 80053; 85025; A9270; J0690; J1100; J2250; J2405; J2704; J3010; J3490; J7120

== ENCOUNTER 2025-02-09 05:10 | Emergency (ER) | payer MEDICARE, BC ==
[2025-02-09 05:25] VITALS: BP 141/81; PULSE 75
== END 2025-02-09 06:00 | disposition home or self-care (01) ==
LOC: JP.ED 05:10
DX: I80.02 Phlebitis and thrombophlebitis of superficial vessels of left lower extremity (principal); I48.91 Unspecified atrial fibrillation; I10 Essential (primary) hypertension; E78.00 Pure hypercholesterolemia, unspecified; Z86.16 Personal history of COVID-19; Z90.49 Acquired absence of other specified parts of digestive tract; Z90.710 Acquired absence of both cervix and uterus; Z88.2 Allergy status to sulfonamides; Z79.01 Long term (current) use of anticoagulants; Z79.899 Other long term (current) drug therapy
CPT/HCPCS: 99283